=== PATIENT | female | born 1935 | race Caucasian/White ===

== ENCOUNTER 2016-07-17 12:18 | Inpatient (IN) | payer OTHER ==
[~2016-07-17] VITALS: Ht 157.5 cm; Wt 69.8 kg
--- NOTE | ~2016-07-17 | HC ---
[facility] [place] [address] CONSULTATION Name: RAKAN PRAKASH Room #: 403-P ADM IN M.R.#: [id number] Admission: 07/17/16 Attend Phys: Lyndsey Cesar Discharge: Date of : 35 Report #: [id number] THIS REPORT FOR: //name// CC: Valentín Hernandez INFECTIOUS DISEASES CONSULTATION REASON FOR CONSULTATION: I was asked to evaluate concerning left foot diabetic infection. HISTORY OF PRESENT ILLNESS: The patient was an 80-year-old who I had seen in May of this year with similar issue. Cultures at that time had grown pseudomonas and MRSA. Treated with IV antibiotic therapy. Ultimately was discharged. She was seen by Dr. Steven as an outpatient. Returns now with increased pain, swelling involving the left foot. Moderate amount of drainage from the plantar aspect of her foot with a wound has been present. No recent antibiotic usage. ALLERGIES: OXYCODONE. MEDICATIONS: As noted on the MAR, now on vancomycin and cefepime. PAST MEDICAL HISTORY: Unchanged from her previous consultation. FAMILY HISTORY: Unchanged from her previous consultation. SOCIAL HISTORY: Unchanged from her previous consultation. REVIEW OF SYSTEMS: No cough, sputum, nausea, vomiting or diarrhea. PHYSICAL EXAMINATION: VITAL SIGNS: Afebrile and hemodynamically stable. GENERAL: She was alert and cooperative. In no acute distress. Eating her dinner. She was hard of hearing, as before. HEENT: Unremarkable. LUNGS: Clear. HEART: Regular, without appreciable murmur. ABDOMEN: Soft and nontender. EXTREMITIES: Left foot had 2+ swelling. There was a wound to the plantar aspect of her mid foot. This had serous drainage. There was erythema involving the mid foot plantar aspect and dorsum. Erythema extended to the toes, most predominant over the fifth digit. She had a moderate amount of ecchymosis over the dorsum of the foot. There was significant edema and fluctuance. LABORATORY STUDIES: Sodium 136, potassium 3.2, bicarbonate 24 and creatinine 1. Bilirubin 1.2, alk phosphatase 177 and ALT 11. Hemoglobin 10.5, white count 14.4 and platelet count 323,000. Urinalysis 2+ protein. Wound so far showing [facility] [address] [place] [address] CONSULTATION Name: RAKAN PRAKASH Room #: 403- ADM IN [facility].#: [id number] Admission: 07/17/16 Attend Phys: Lyndsey Cesar Discharge: Date of : 35 Report #: [id number] Staph aureus. Blood cultures 1 of 2 showing gram-positive cocci. IMPRESSION AND PLAN: An 80-year-old with diabetic foot infection on the left with concern for underlying osteomyelitis given the duration of her wound and the amount of swelling that we were dealing with now. Indeterminate whether we are dealing with a contaminant from her blood culture or actually has Staph aureus associated with the foot infection. She has completed MRI scan and I am awaiting results. I agree with orthopedic surgery evaluation. Will continue with broad antibiotic coverage, including vancomycin and Zosyn and will likely need surgical intervention. <ELECTRONICALLY SIGNED> By: Alex Hernandez MD 07/19/16 1210 1812 0147 Alex Hernandez MD /nt
--- NOTE | ~2016-07-17 | HC ---
[facility] [place] [address] CONSULTATION Name: RAKAN PRAKASH Room #: 429-P ADM IN M.R.#: [id number] Admission: 07/17/16 Attend Phys: Lyndsey Cesar Discharge: Date of : 35 Report #: [id number] THIS REPORT FOR: //name// CC: Valentín Hernandez DATE OF SERVICE: 07/21/2016 HISTORY OF PRESENT ILLNESS: The patient is an 80-year-old white female originally admitted through the emergency department with pain in her left foot. She has been following with outpatient wound care for a foot wound. She was diagnosed with an infected left diabetic foot wound with abscess formation and osteomyelitis. She ended up undergoing a left below knee amputation on 07/20/2016. We are seeing her in rehabilitation medicine consultation. 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 PAST SURGICAL HISTORY: Includes old right total shoulder arthroplasty. She has had left knee arthroscopy and a cholecystectomy. MEDICATIONS: Please see the full medication listing. FAMILY HISTORY: Noncontributory. SOCIAL HISTORY: Lives in a condominium with a ramp, stays upstairs with a ramp to enter. She has a friend from tenri[place] that stays with her, which she calls her [employer] daughter as well as son-in-law and some grand kids. She premorbidly used a walker at times. REVIEW OF SYSTEMS: Did not offer any current complaints of chest pain, shortness of breath or abdominal discomfort. PHYSICAL EXAMINATION: GENERAL: The patient is an 80-year-old white female in no obvious distress. The patient is alert, pleasant, oriented. VITAL SIGNS: Last recorded temperature is 98.6, pulse 113, respirations 18, blood pressure 141/70. HEENT: Appeared to be benign. NEUROLOGIC: Cranial nerves are grossly intact. Facies are symmetric. She has functional range of motion of both upper extremities with strength of grade 4-/5. DTRs are trace to 1. In her lower extremities, she has functional range of motion with good strength of that right lower extremity at a grade 4-. Her left below knee amputation site is dressed with the drain in place. She has some discomfort moving the left lower extremity. Therapies are to assess. She is very motivated as far as improving her function. [address] [address] CONSULTATION Name: RAKAN PRAKASH Room #: [address] [place] [address] IN M.R.#: [id number] Admission: 07/17/16 Attend Phys: Lyndsey Cesar Discharge: Date of : 35 Report #: [id number] ASSESSMENT: An 80-year-old white female with the following problem list: 1. Left wound with osteomyelitis status post below-knee amputation 07/20/2016. 2. Diabetes mellitus type 2. 3. Hypertension. 4. Renal insufficiency. 5. Hypertension. 6. Prior right acoustic nerve tumor treated in 2002. PLAN: Therapy evaluations are underway. She is very motivated and appears younger than her 80 years and is wanting to return back to the home setting. We will assess how she does with therapies. I am anticipating that she should have the tolerance for an acute in-hospital inpatient rehabilitation stay. Note that infectious disease is planning on vancomycin 2 weeks postoperative. Insurance will need to be checked regarding an acute in-hospital inpatient rehabilitation stay. <ELECTRONICALLY SIGNED> By: Vinh Nick MD 07/24/16 1054 1102 1222 Vinh Nick MD /nt
--- NOTE | ~2016-07-17 | S ---
[facility] [place] [address] SURGICAL PATH RPT PROCEDURE Name: RAKAN ALBRIGHT Room #: 429-P ADM IN M.R.#: [id number] Admission: 07/17/16 Date of : 35 Discharge: Report #: [id number] Path Case #: [id number] PATHOLOGY REPORT COLLECTION DATE: 07/20/2016 RECEIVED DATE: 07/20/2016 SUBMITTING PHYS: Dr. Joseph Monique OTHER PHYS: Dr. Valentín Hernandez SPECIMEN(S) RECEIVED: A.Left leg * * * * * * * * * * * * FINAL DIAGNOSIS: Portion of leg, "left leg," amputation: - Deep penetrating acute ulceration with necrotic acute inflammatory exudate forming an abscess. - The inflammation extends deeply into the underlying bone with acute osteomyelitis with areas of necrosis and acute inflammation. - The anterior and posterior tibial vasculature reveals calcified atherosclerotic narrowing of vessels. - The skin section margin appears viable. (SHA:; d/t: 07/24/16) PATHOLOGIST: Mert Bray M.D. REPORT ELECTRONICALLY SIGNED BY: Mert Bray M.D. DATE/TIME: 07/24/2016 14:12 * * * * * * * * * * * * GROSS PATHOLOGY: The specimen is received fresh in a red biohazard bag and labeled "Rakan Albright and left leg." Received is a left lower extremity specimen amputated through the tibia and fibula with a smooth resection margin. The specimen measures 22.5 cm from heel to toe, 13.0 cm from heel to soft tissue resection margin, 21.5 cm from heel to tibial bone resection margin, and 28.5 cm from heel to fibular bone resection margin. The skin, soft tissue, and bone resection margins are grossly viable and unremarkable. The skin is pink-buckner and wrinkled. There is a 2.0 x 2.0 cm bright red, poorly circumscribed, and partially crusted ulcer located on the medial/plantar aspect of the foot. The ulcer grossly extends to and involves the underlying bone. The great toe, third, fourth, and fifth digits with thickened, dark yellow nails are present. The second digit is absent. Sectioning of the anterior and posterior tibial vasculature reveals patent and slightly calcified lumens. [employer] Development Rep sections are submitted as follows: [address] [address] SURGICAL PATH RPT PROCEDURE Name: RAKAN ALBRIGHT CARYN Room #: [address] [place] [address] IN .R.#: [id number] Admission: 07/17/16 Date of : 35 Discharge: Report #: [id number] Path Case #: [id number] longitudinal section of skin and soft tissue margin (inked) A2 ulcer A3 bone underlying ulcer, following decalcification A4 anterior tibial vasculature, following decalcification A5 posterior tibial vasculature, following decalcification (TTL; 07/21/2016) CLINICAL HISTORY: Cellulitis left foot INITIAL CPT CODE(S): A; 67243, 20102 Professional services performed by [facility] at [place] [address] [address], [place] [address] Technical services performed by [facility] at [address] [place] [address], [address], [place] [address]. [facility] [address] [place] [address] PHONE: [phone] DIRECTOR: Brett Reynolds M.D. * * * END OF REPORT * * *
--- NOTE | ~2016-07-17 | D ---
[facility] [place] [address] DISCHARGE SUMMARY Name: RAKAN PRAKASH Room #: 429-P ADM IN M.R.#: [id number] Admission: 07/17/16 Attend Phys: Lyndsey Cesar Discharge: Date of : 35 Report #: [id number] THIS REPORT FOR: //name// CC: Valentín Hernandez FINAL DIAGNOSES: 1. Osteomyelitis of the left foot. 2. Left todne-uno-ehdu amputation. 3. Diabetes type 2. 4. Hypertension. HOSPITAL COURSE: The patient was admitted with cellulitis, pain, swelling and infection of a wound on the left foot. Ultimately, she is diagnosed with osteomyelitis and after consultation with orthopedics and infectious disease, the plan was for amputation. She underwent a left xqraq-lue-xdbz amputation by Dr. Monique. Please see his separately dictated operative note. Postoperatively, she had no complications. She continued Lovenox for DVT prophylaxis and her usual medications. Dr. Alex Hernandez felt 2 weeks' postop IV vancomycin was in order and this was continued. She had no other interval complications. Ultimately, plans were made for her to transfer to a skilled facility for ongoing care and therapy. PHYSICAL EXAMINATION: GENERAL: On the day of discharge, she was awake and alert, resting in bed, in no distress. VITAL SIGNS: Stable. LUNGS: Clear. HEART: Regular. ABDOMEN: Soft. EXTREMITIES: Showed no edema. DISPOSITION: She will be discharged to [facility] under the care of in-house physician. Diabetic diet and activity as tolerated. PT, OT. Follow up with Dr. Monique in 3-[address] Hernandez in 3-6 weeks. She will continue vancomycin IV daily for 2 more weeks, Lovenox for 5 more days and her other home medications. <ELECTRONICALLY SIGNED> By: Vinh Johnson MD 07/25/16 1411 0906 1114 Vinh Johnson MD /nt
--- NOTE | ~2016-07-17 | HC ---
[facility] [place] [address] CONSULTATION Name: RAKAN PRAKASH Room #: 429-P [facility] IN M.R.#: [id number] Admission: 07/17/16 Attend Phys: Lyndsey Cesar Discharge: 07/25/16 Date of : 35 Report #: [id number] THIS REPORT FOR: //name// CC: Valentín Hernandez REASON FOR CONSULTATION: Left foot wound, possible osteomyelitis. HISTORY OF PRESENT ILLNESS: The patient is an 80-year-old female who presented to the Emergency Department with left foot pain. She reports an ongoing wound to the left foot on the plantar surface that she has been treated by Dr. Steven. She reports having surgery by Dr. Joseph Monique in the past and this is confirmed from the medical record on 03/13/2016 she had a irrigation and debridement of her left foot wound by Dr. Joseph Monique. She reports approximately 10 days ago having increased pain and swelling in the foot. 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 She also noticed increased drainage. REVIEW OF SYSTEMS: INTEGUMENTARY: Denies any other wounds. NEUROVASCULAR: Denies any changes in numbness or tingling. PAST MEDICAL HISTORY: Reviewed from the patient's medical record including diabetes, hypertension, left foot diabetic wound and dyslipidemia. PAST SURGICAL HISTORY: Cholecystectomy, appendectomy, post left foot wound debridement in 02/2016. SOCIAL HISTORY: She lives at home with people from her latter day. She lost one of her daughters about a year ago and her other daughter, she does not have significant contact with. She denies alcohol or smoking. She reports being in a wheelchair secondary to her wound, but has used a cane or walker in the past. ALLERGIES: OXYCODONE. MEDICATIONS: The patient's MAR was reviewed, which shows glimepiride, bisoprolol, gabapentin, enoxaparin, amlodipine, vancomycin, potassium chloride, acetaminophen, hydrocodone, fentanyl, cefepime and ondansetron. LABORATORY DATA: Laboratory studies done on 07/18/2016 show a white blood cell count of 14.4, hemoglobin 10.5, hematocrit 32.1, platelet count 323. Chemistry on 07/19/2015 shows glucose at 139. Sodium is 136, potassium is low at 3.2 and albumin is low at 1.6. PHYSICAL EXAMINATION: GENERAL: She is alert, she is oriented x 3. She is a well-developed, well-nourished female in no acute distress. She does have some hearing loss, which makes the exam somewhat more difficult. EXTREMITIES: Examination of her left lower extremity; she has no palpable [address] [address] CONSULTATION Name: RAKAN PRAKASH Room #: 429-P [facility] IN M.R.#: [id number] Admission: 07/17/16 Attend Phys: Lyndsey Cesar Discharge: 07/25/16 Date of : 35 Report #: [id number] posterior tibialis pulse. There is a 1+ dorsalis pedis pulse. She has a deformed foot with medial plantar wound measuring approximately 1 cm with mild erythema, I am not able to express any fluid and there is diffuse dorsal foot erythema. She wiggles her toes very minimally and has tenderness diffusely. RADIOGRAPHS: Three views; AP, lateral and oblique of the left foot from 10/11/2014 shows some degenerative changes at the tarsometatarsal joint. Radiographs; 3 views of the left foot done on 07/17/2016 show significant osteolysis at the metatarsophalangeal joints diffusely. Dorsal subcutaneous gas is noted. IMPRESSION AND PLAN: Left chronic plantar foot wound with dorsal subcutaneous gas. The patient will undergo an MRI later to evaluate for osteomyelitis. I will discuss with my partner, Dr. Joseph Monique as he knows this patient and hopefully we will continue with care. Questions were encouraged and answered to the best of my ability. <ELECTRONICALLY SIGNED> By: Kiara Pena MD 07/26/16 0759 1533 0020 Kiara Pena MD /nt
--- NOTE | ~2016-07-17 | O ---
[facility] [place] [address] OPERATIVE REPORT Name: RAKAN PRAKASH Room #: 403-P ADM IN M.R.#: [id number] Admission: 07/17/16 Attend Phys: Lyndsey Cesar Discharge: Date of : 35 Report #: [id number] THIS REPORT FOR: //name// CC: Valentín Hernandez DATE OF SERVICE: 07/20/2016 PREOPERATIVE DIAGNOSIS: Left foot osteomyelitis. POSTOPERATIVE DIAGNOSIS: Left foot osteomyelitis. PROCEDURE: Left below the knee amputation. SURGEON: Joseph Monique M.D. MOLDER FITTING: MELVA Castro (critical for positioning and safe performance of the procedure). ANESTHESIA: General. ESTIMATED BLOOD LOSS: Minimal. DRAINS: None. TOURNIQUET TIME: 40 minutes. DESCRIPTION OF PROCEDURE: The patient brought to the operating room where she was placed under general anesthesia. Once under adequate general anesthesia, her left lower extremity was prepped and draped in sterile manner. Left lower extremity was elevated and tourniquet placed to 300 mmHg. A fishmouth type incision was then made about the mid to distal tibial shaft. This was dissected directly down to the bone anteriorly and to the fibula laterally. The Bovie cautery was utilized to incise the remainder of the muscular tissue. Any vessels were tagged for later ligation. The peroneals and the posterior tibial vessels were identified and tagged for later ligation. The periosteum of the tibia was elevated and an oscillating saw was utilized to transect the tibia. This was then beveled anteriorly with the oscillating saw. A few centimeters proximal to this, the fibula was transected as well. The distal extremity was then able to be removed. The posterior tibial and peroneal vessels were then suture ligated with 0 silk suture. The posterior tibial nerve was incised sharply up in the muscular tissue away from the amputation site. The wound was then irrigated copiously and closed with #1 Vicryl into the deep fascia over a Hemovac drain, 2-0 Vicryl for subcutaneous tissues and connie were used for the skin. The wounds were dressed with Xeroform, 4 x 4s, and a sterile soft compressive dressing was placed. Tourniquet was let down at 30 minutes. Tourniquet was let down at approximately 35 minutes. There were no [facility] [address] [place] [address] OPERATIVE REPORT Name: PRAKASHRAKAN Room #: 403-P [facility] IN ..#: [id number] Admission: 07/17/16 Attend Phys: Lyndsey Cesar Discharge: Date of : 35 Report #: [id number] complications from the procedure. The patient tolerated the procedure well and went to the recovery room without incident. <ELECTRONICALLY SIGNED> By: Joseph Monique MD 07/21/16 1344 0841 1102 Joseph Monique MD /sherin
--- NOTE | ~2016-07-17 | H ---
[facility] [place] [address] HISTORY AND PHYSICAL Name: RAKNA PRAKASH Room #: 403-P ADM IN M.R.#: [id number] Admission: 07/17/16 Attend Phys: Lyndsey Cesar Discharge: Date of : 35 Report #: [id number] THIS REPORT FOR: //name// CC: Valentín Hernandez DATE OF SERVICE: 07/17/2016 CHIEF COMPLAINT: Fever, chills and foot pain. HISTORY OF PRESENT ILLNESS: The patient is an 80-year-old female who was admitted to the emergency room with pain of the left foot. She has an ongoing wound on the dorsum of the foot, around the plantar surface of the foot for quite some months. She has been treated as an outpatient. She also has a foot deformity as a result. However, in recent days, she has noted increased swelling, pain, redness and drainage from the left foot wound. PAST MEDICAL HISTORY: Diabetes type 2, hypertension. 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 PAST SURGICAL HISTORY: She has had a cholecystectomy, appendectomy and orthopedic knee surgeries. FAMILY HISTORY: Noncontributory. SOCIAL HISTORY: She lives at home with family. No chronic alcohol or tobacco use. ALLERGIES: OXYCODONE. MEDICATIONS: Hydrocodone 7.5, Norvasc 5 mg, bisoprolol 5 mg, Amaryl 2 mg, clonidine 0.1 mg b.i.d., Neurontin 300 mg t.i.d. and 600 mg at bedtime and vitamin B12. REVIEW OF SYSTEMS: She denies headache, chest pain, shortness of breath, abdominal pain, nausea, vomiting, diarrhea, constipation, dysuria or syncope. PHYSICAL EXAMINATION: VITAL SIGNS: Temperature 36.9, pulse 90, respirations 18, blood pressure 144/76 and O2 sat 96% on room air. GENERAL: She is awake and alert, in no distress. HEAD AND NECK: She is very hard of hearing. LUNGS: Clear with no wheezing. HEART: Regular, with no murmur. ABDOMEN: Soft. Normoactive bowel sounds. EXTREMITIES: No cyanosis or clubbing. The left foot has 1+ edema with erythema [address] [address] HISTORY AND PHYSICAL Name: RAKAN PRAKASH Room #: [facility] IN [facility].#: [id number] Admission: 07/17/16 Attend Phys: Lyndsey Cesar Discharge: Date of : 35 Report #: [id number] and warmth. On the plantar surface, there is a nickel sized opening, oozing some serous yellow drainage. There is a lot palpable tenderness. There is a mid foot deformity. NEUROLOGIC: Global strength 3/5 throughout. LABORATORY DATA: X-ray revealed signs of cellulitis and perhaps subcutaneous abscess. Blood culture has gram-positive cocci. ASSESSMENT: 1. Infected left diabetic foot wound. 2. Diabetes type 2. 3. Hypertension. PLAN: I will ask Dr. Alex Hernandez to see her in consultation and Dr. Monique. An MRI is ordered. Now continue IV antibiotics. She may need long-term antibiotic treatment and wound care pending the results of MRI. Lovenox for DVT prophylaxis. <ELECTRONICALLY SIGNED> By: Vinh Johnson MD 07/19/16 1015 0929 1007 Vinh Johnson MD /nt
[~2016-07-17 12:18] MED LIST: ADULT LOW DOSE81 MG PO; AMARYL2 MG PO; AUGMENTIN 875875 MG PO; B12INJ IM; BACTRIM DS TAB1 EACH PO; BISOPROLOL FUMAR5 MG PO; BUSPAR; CEPHALEXIN 500500 M1 PO; CIPRO500 MG PO; CLONIDINE PO; CLONIDINE0.1 PO; DIOVAN HCT 80-1 EACH PO; ETODOLAC 400 M400 M1 PO; ETODOLAC 400 M400 MG PO; FLONASE 0.05%50 MCG NASAL; GABAPENTIN300 MG PO; GLUCOPHAGE XR500 MG; GLUCOPHAGE500 MG PO; HYDROCHLOROTH12.5 MG PO; HYDROCODONE-APA1 TA1 PO; KEFLEX500 MG PO; LIPITOR10 MG PO; METFORMIN 500500 MG PO; METOPROLOL 100100 MG PO; NEURONTIN 300300 M1 PO; NEURONTIN600 MG PO; NORCO 5-325 TA1 EACH PO; NORVASC 5 MG TAB5 MG PO; NORVASC10 MG PO; NOVOLIN N100 UNIT/1 SQ; NOVOLOG100 UNIT/1 SQ; PEPCID20 MG PO; PLAVIX 75 MG TA75 MG PO; PRILOSEC 20 MG20 MG PO; ULTRAM 50MG TAB50 MG PO; VALIUM2 MG PO; VITAMIN B-12500 MCG PO; VITAMINC500 PO; ZIAC 5-6.25 MG1 EACH PO; ZINC50 M2 PO; ZOFRAN ODT4 MG PO
[2016-07-17 12:19] VITALS: BP 123/67
[2016-07-17 13:21] LABS: HEMATOCRIT 31.3 % (37.0-47.0); HEMOGLOBIN 10.5 gm/dL (12.0-15.0); MANUAL DIFF YES; MCH 26.7 pg (26.0-34.0); MCHC 33.4 g/dL (28.0-37.0); PLATELET COUNT 299 thou/uL (150-400); RBC 3.92 mil/uL (4.20-5.00); WBC 14.3 thou/uL (4.0-11.0)
[2016-07-17 13:28] LABS: CALCIUM 9.2 mg/dL (8.5-10.1); CREATININE 1.3 mg/dL (0.6-1.0); POTASSIUM 3.8 mmol/L (3.5-5.1)
[2016-07-17 13:33] LABS: ALBUMIN 1.8 g/dL (3.4-5.0); DIRECT BILIRUBIN 1.2 mg/dL (<0.1-0.3); TOTAL BILIRUBIN 1.9 mg/dL (<0.1-1.0); TOTAL PROTEIN 6.6 g/dL (6.4-8.2)
[2016-07-17 13:55] LABS: ABSOLUTE NEUTROPHILS 13.3 thou/uL (1.4-8.2); PLATELET ESTIMATE NORMAL; TOTAL CELL COUNT 100
[2016-07-17 16:12] VITALS: BP 132/47
[2016-07-17 16:29] LABS: URINE BLOOD 2+ (Negative); URINE COLOR YELLOW; URINE GLUCOSE-RANDOM* NEGATIVE (Negative); URINE KETONES 1+ (Negative); URINE NITRITE NEGATIVE (Negative); URINE PROTEIN (DIPSTICK) 2+ (Negative); URINE UROBILINOGEN >= 8.0 E.U./dl (0.2-1.0)
[2016-07-17 16:33] LABS: URINE BILIRUBIN NEGATIVE (Negative)
[2016-07-17 16:34] LABS: SQUAMOUS 0-3 Few /LPF (0-3); URINE RBC 0-2 Rare /HPF (0-2); URINE WBC 0-5 Rare /HPF (0-5)
[2016-07-17 16:35] LABS: CASTS None Seen /LPF (None Seen); CRYSTALS None Seen /LPF (None Seen)
[2016-07-17 18:45] VITALS: BP 123/62
[2016-07-18 00:54] VITALS: BP 134/75
[2016-07-18 03:45] VITALS: BP 144/76
[2016-07-18 06:28] LABS: ALBUMIN 1.6 g/dL (3.4-5.0); CALCIUM 8.8 mg/dL (8.5-10.1); POTASSIUM 3.2 mmol/L (3.5-5.1); TOTAL BILIRUBIN 1.2 mg/dL (<0.1-1.0); TOTAL PROTEIN 6.5 g/dL (6.4-8.2)
[2016-07-18 06:46] LABS: HEMATOCRIT 32.1 % (37.0-47.0); HEMOGLOBIN 10.5 gm/dL (12.0-15.0); MCH 26.3 pg (26.0-34.0); MCHC 32.7 g/dL (28.0-37.0); MCV 80.4 fL (80.0-100.0); RDW 15.1 % (10.5-14.5); WBC 14.4 thou/uL (4.0-11.0)
[2016-07-18 08:00] VITALS: BP 147/71
[2016-07-18 16:00] VITALS: BP 112/79
[2016-07-18 21:10] VITALS: BP 146/78
[2016-07-18 23:10] VITALS: BP 137/60
[2016-07-19 03:43] VITALS: BP 138/64
[2016-07-19 08:06] VITALS: BP 147/74
[2016-07-19 09:01] LABS: ABSOLUTE NEUTROPHILS 10.3 thou/uL (1.4-8.2); BASOPHILS 0.5 % (0.0-2.0); EOSINOPHILS 1.5 % (0.0-3.0); HEMOGLOBIN 11.2 gm/dL (12.0-15.0); LYMPHOCYTES 10.3 % (24.0-44.0); MCH 26.8 pg (26.0-34.0); MCV 81.3 fL (80.0-100.0); MONOCYTES 6.9 % (1.0-8.0); PLATELET COUNT 370 thou/uL (150-400); POLYS 80.8 % (36.0-66.0); RBC 4.19 mil/uL (4.20-5.00); RDW 15.1 % (10.5-14.5); WBC 12.7 thou/uL (4.0-11.0)
[2016-07-19 09:02] LABS: MANUAL DIFF NO
[2016-07-19 10:45] LABS: CALCIUM 8.8 mg/dL (8.5-10.1); POTASSIUM 3.6 mmol/L (3.5-5.1)
[2016-07-19 16:04] VITALS: BP 130/67
[2016-07-19 19:40] VITALS: BP 122/59
[2016-07-20] VITALS (9 sets, daily range): BP systolic 104–148; BP diastolic 50–81
[2016-07-20 06:37] LABS: HEMATOCRIT 33.4 % (37.0-47.0); MCH 26.6 pg (26.0-34.0); MCHC 32.8 g/dL (28.0-37.0); MCV 80.9 fL (80.0-100.0); PLATELET COUNT 354 thou/uL (150-400); RBC 4.13 mil/uL (4.20-5.00); RDW 15.3 % (10.5-14.5); WBC 13.3 thou/uL (4.0-11.0)
[2016-07-20 06:42] LABS: MANUAL DIFF YES
[2016-07-20 07:04] LABS: CALCIUM 9.4 mg/dL (8.5-10.1); CREATININE 1.2 mg/dL (0.6-1.0); POTASSIUM 3.5 mmol/L (3.5-5.1)
[2016-07-20 07:47] LABS: ABSOLUTE NEUTROPHILS 10.2 thou/uL (1.4-8.2); TOTAL CELL COUNT 100
[2016-07-20 07:48] LABS: ANISOCYTOSIS 1+
[2016-07-21 04:00] VITALS: BP 138/68
[2016-07-21 05:06] LABS: CALCIUM 8.2 mg/dL (8.5-10.1); CREATININE 1.1 mg/dL (0.6-1.0); POTASSIUM 3.8 mmol/L (3.5-5.1)
[2016-07-21 05:27] LABS: HEMATOCRIT 30.4 % (37.0-47.0); HEMOGLOBIN 9.9 gm/dL (12.0-15.0); MCH 26.3 pg (26.0-34.0); MCHC 32.5 g/dL (28.0-37.0); RBC 3.76 mil/uL (4.20-5.00); RDW 15.2 % (10.5-14.5)
[2016-07-21 08:42] VITALS: BP 141/70
[2016-07-21] MEDS ORDERED: ENOXAPARIN40 MG/0.1 SUBQ (08:54)
[2016-07-21 21:01] VITALS: BP 137/72
[2016-07-22 05:16] VITALS: BP 145/78
[2016-07-22 08:01] VITALS: BP 140/74
[2016-07-22 16:21] VITALS: BP 148/72
[2016-07-22 18:30] VITALS: BP 133/64
[2016-07-22 20:30] VITALS: BP 120/69
[2016-07-23 04:30] VITALS: BP 136/74
[2016-07-23 07:51] VITALS: BP 160/96
[2016-07-23 16:32] VITALS: BP 140/88
[2016-07-23 21:28] VITALS: BP 118/64
[2016-07-24 04:51] VITALS: BP 143/68
[2016-07-24] MEDS ORDERED: VANCO 1.251.25 GM/25 IVPB (08:27)
[2016-07-24 08:30] VITALS: BP 142/66
[2016-07-24 12:47] LABS: CALCIUM 8.4 mg/dL (8.5-10.1); POTASSIUM 4.2 mmol/L (3.5-5.1)
[2016-07-24 13:26] VITALS: BP 122/56
[2016-07-24 20:00] VITALS: BP 130/70
[2016-07-25 04:18] VITALS: BP 136/64
[2016-07-25 08:03] VITALS: BP 143/72
== END 2016-07-25 17:05 | DRG 853 ==
LOC: ER 12:18 → 4N 15:27 → EROBS 15:27 → 4N 16:57 → 4E 07-22 18:24
PROVIDERS: Internal Medicine Geriatric Medicine; Nurse Practitioner; Orthopaedic Surgery Foot and Ankle Surgery
PROC: 0Y6J0Z2 Detachment at Left Lower Leg, Mid, Open Approach (ICD-10-PCS; principal; 2016-07-20)
PROC: 02HV33Z Insertion of Infusion Device into Superior Vena Cava, Percutaneous Approach (ICD-10-PCS; 2016-07-25)
DX: A41.9 Sepsis, unspecified organism (principal); E43 Unspecified severe protein-calorie malnutrition; M86.9 Osteomyelitis, unspecified; L03.116 Cellulitis of left lower limb; L02.612 Cutaneous abscess of left foot; E11.69 Type 2 diabetes mellitus with other specified complication; E11.42 Type 2 diabetes mellitus with diabetic polyneuropathy; I10 Essential (primary) hypertension; E78.00 Pure hypercholesterolemia, unspecified; Z96.611 Presence of right artificial shoulder joint; S91.302A Unspecified open wound, left foot, initial encounter; X58.XXXA Exposure to other specified factors, initial encounter; N28.9 Disorder of kidney and ureter, unspecified; E78.5 Hyperlipidemia, unspecified; B95.62 Methicillin resistant Staphylococcus aureus infection as the cause of diseases classified elsewhere; Z98.42 Cataract extraction status, left eye; Z98.41 Cataract extraction status, right eye; Z88.6 Allergy status to analgesic agent; Y93.89 Activity, other specified; Y92.89 Other specified places as the place of occurrence of the external cause; Z86.73 Personal history of transient ischemic attack (TIA), and cerebral infarction without residual deficits; Y99.8 Other external cause status; Z90.49 Acquired absence of other specified parts of digestive tract
CPT/HCPCS: 10783; 10790; 27000; 50010; 50101; 50386; 51412; 53000; 56524; 56525; 57091; 62110; 62900; 70005

== ENCOUNTER → 2017-04-17 | Outpatient (CLI) | payer OTHER, SELFPAY ==
[~2017-04-17] MED LIST changes: +COLACE 100 MG100 MG PO; +ENOXAPARIN30 MG/0.1 SUBQ; +ENOXAPARIN40 MG/0.1 SUBQ; +NORCO 7.5-3251 EACH PO; +SENNA8.6 MG PO; +VANCO 1.251.25 GM/25 IVPB
[2017-04-17 12:42] LABS: CREATININE 1.2 mg/dL (0.6-1.0)
== END ==
LOC: MRI 10:38
PROVIDERS: Otolaryngology Plastic Surgery within the Head & Neck
DX: H90.41 Sensorineural hearing loss, unilateral, right ear, with unrestricted hearing on the contralateral side (principal); H93.8X1 Other specified disorders of right ear; D36.10 Benign neoplasm of peripheral nerves and autonomic nervous system, unspecified; E11.9 Type 2 diabetes mellitus without complications; E78.00 Pure hypercholesterolemia, unspecified; I51.89 Other ill-defined heart diseases; Z98.890 Other specified postprocedural states

== ENCOUNTER 2017-06-17 12:58 | Inpatient (IN) | payer OTHER, SELFPAY ==
[~2017-06-17] VITALS: Ht 157.5 cm; Wt 76.7 kg
--- NOTE | ~2017-06-17 | EKG ---
[address] [employer] [place] [address] ELECTROCARDIOGRAM REPORT Name: RAKAN PRAKASH Room #: 407-P ADM IN M.R.#: [id number] Admission: 06/17/17 Attend Phys: Vinh Johnson MD Discharge: Date of : 35 Report #: [id number] THIS REPORT FOR: //name// [facility] ED Test Date: 2017-06-17 Test Time: 15:11:54 Pat Name: RAKAN PRAKASH Department: Room: 407 Gender: F Slasher: Caleb LACY : 1935 Requested By: Maksim Latif Order Number: [id number] MD: Aaron Haley Measurements Intervals Garibaldi Rate: 71 P: 35 MD: 137 QRS: -8 QRSD: 113 T: 43 QT: 424 QTc: 461 Interpretive Statements Sinus rhythm Inferior infarct, old Compared to ECG 07/14/2015 23:10:24 No significant changes Electronically Signed On 06-18-2017 8:40:05 PURCHASING CLERK by Aaron Haley [email or web address] <ELECTRONICALLY SIGNED> By: Aaron Haley MD, [facility] 06/18/17 0840 10 10 Aaron Haley MD, [facility] /EPI
--- NOTE | ~2017-06-17 | O ---
[facility] [place] [address] OPERATIVE REPORT Name: RAKAN PRAKASH Room #: 407-P [facility] IN M.R.#: [id number] Admission: 06/17/17 Attend Phys: Vinh Johnson MD Discharge: Date of : 35 Report #: [id number] THIS REPORT FOR: //name// CC: Valentín Johnson DATE OF SERVICE: 06/18/2017 PREOPERATIVE DIAGNOSIS: Right periprosthetic midshaft humerus fracture. POSTOPERATIVE DIAGNOSIS: Right periprosthetic midshaft humerus fracture. PROCEDURE: ORIF of right periprosthetic midshaft humerus fracture. SURGEON: Raman Sadler MD [facility] LOCATION MANAGER: MELVA Rodriguez INDICATIONS FOR ASSISTANCE: Throughout the case extensive retraction and assistance with reduction was required. This was afforded to me by my shop assistant. ANESTHESIA: General endotracheal. IMPLANTS: Synthes 10-hole 3.5 locking plate with 3 proximal unicortical locking screws and 2 proximal cerclage cables as well as 2 distal locking screws and 1 distal cortical screw. ESTIMATED BLOOD LOSS: 100 mL. COMPLICATIONS: None. SPECIMENS: None. CONDITION UPON LEAVING THE OPERATING ROOM: Stable. INDICATIONS FOR PROCEDURE: The patient is an 81-year-old female who had a right shoulder hemiarthroplasty approximately 8 years or so ago. X-ray as well as CT scan showed her to have a spiral fracture at the level of the tip of the implant. Implant did appear stable and so it was decided to proceed with ORIF of the humerus. DESCRIPTION OF PROCEDURE: Risks, benefits, alternatives, complications were discussed in detail with the patient including but not limited to risk of [facility] [address] [place] [address] OPERATIVE REPORT Name: RAKAN PRAKASH Room #: 407-P ADM IN M.R.#: [id number] Admission: 06/17/17 Attend Phys: Vinh Johnson MD Discharge: Date of : 35 Report #: [id number] anesthesia, risk of damage to nerves, arteries, blood vessels, risk for infection, bleeding, risk for malunion, nonunion, need for reoperation. Informed consent was obtained from the patient. The right shoulder was appropriately marked in the preoperative holding area. IV Ancef was given for preoperative antibiotics. She was brought to the operating room and placed in the supine position on the operating room table. General endotracheal anesthesia was induced without complication. Right upper extremity was prepped and draped in normal sterile fashion. Timeout was performed properly identifying the patient and procedure as well as the instrumentation. All in the operating room were in agreement. Standard anterolateral approach to the midshaft of the humerus was made with a 10 blade through the skin along the lateral border of the biceps muscle. Dissection was taken down to the fascia with Bovie cautery. Fascia was incised longitudinally and the plane between the biceps and the brachialis was developed digitally. The biceps was retracted medially and the brachialis musculature was split in its midline with Bovie cautery and a Robles elevator down to the bone. Fracture site was easily identified and the hematoma was curetted out and irrigated. Fracture was then held reduced with 2 bhajn-nf-vrwcd reduction forceps. A 10-hole 3.5 plate was placed on the anteromedial border of the humerus and fluoroscopic imaging was brought in to verify adequate length of the plate. The 2 most proximal screw holes were used to place 2 unicortical screws; 1 distal screw, bicortical, was placed to bring the plate down to the bone. Two additional distal locking screws were placed. After fluoroscopic imaging, it was decided that there would be room for 2 cerclage cables and additional unicortical screw proximally and these were placed. We used the cable passer and we were careful to stay on bone posteriorly in order to avoid the radial nerve. The cables were tensioned and crimped. After this, final fluoroscopic imaging was brought in to verify adequate fracture reduction and placement of hardware as was the case. Wound was thoroughly irrigated with normal saline. The split in the brachialis was closed loosely with 0 Vicryl suture. Adipose layer was closed with 0 Vicryl. Skin was closed with 2-0 Vicryl and skin connie. Aquacel dressing was applied. The patient tolerated this procedure well, went to the recovery room under the care of Anesthesia postoperatively. <ELECTRONICALLY SIGNED> By: Raman Sadler MD 06/20/17 1448 99 39 Raman Sadler MD /nt
--- NOTE | ~2017-06-17 | HC ---
[facility] [place] [address] CONSULTATION Name: RAKAN PRAKASH Room #: 407-P [facility] IN M.R.#: [id number] Admission: 06/17/17 Attend Phys: Vinh Johnson MD Discharge: 06/25/17 Date of : 35 Report #: [id number] THIS REPORT FOR: //name// CC: Valentín Johnson DATE OF SERVICE: 06/20/2017 HISTORY OF PRESENT ILLNESS: The patient is an 81-year-old white female with a prior right shoulder surgery who fell outside mandaeism and was noted to sustain a displaced periprosthetic right humerus fracture. She was admitted to [facility] and underwent open reduction and internal fixation on 06/18/2017. She has been placed in a sling. We are seeing her in rehabilitation medicine consultation. PAST MEDICAL HISTORY: Includes the prior right total shoulder as noted above. She has a history of diabetes mellitus type 2 and underwent a left below knee amputation in 2017. She does have a prosthesis. History of hypertension and she had a brain tumor with radiation therapy back in 2012. History of peripheral neuropathy. MEDICATIONS: Please see the full medication listing. PAST SURGICAL HISTORY: As noted above. FAMILY HISTORY: Noncontributory. ALLERGIES: OXYCODONE. SOCIAL HISTORY: She lives with her cousin in a condominium, no steps. She has a wheelchair, front-wheeled walker and cane. She did have assistance a couple of times a day helping in the morning and the evening with dressing, showering and IADLs. REVIEW OF SYSTEMS: No current complaints of chest pain, shortness of breath or abdominal discomfort. She has had some problems with her right knee and has been attending outpatient physical therapy prior to this current admission. PHYSICAL EXAMINATION: GENERAL: An 81-year-old white female in no obvious distress. VITAL SIGNS: Last recorded temperature is 98.9, pulse 80, respirations 18, blood pressure 153/72. She is alert, pleasant. HEENT: Appeared to be benign. NEUROLOGIC: Cranial nerves are grossly intact. Facies are symmetric. EXTREMITIES: Functional range of motion of the left upper extremity without obvious focal weakness. Right upper extremity is in a moustapha-sling. [facility] [address] [place] [address] CONSULTATION Name: RAKAN PRAKASH Room #: [facility] IN [facility].#: [id number] Admission: 06/17/17 Attend Phys: Vinh Johnson MD Discharge: 06/25/17 Date of : 35 Report #: [id number] Extremities: She has functional range of motion of the right lower extremity with decreased distal sensation consistent with her peripheral neuropathy. No focal calf swelling. Strength is a grade 4 to 4-/5. Left lower extremity reveals the well-healed below knee amputation. No distal breakdown. Strength is probably a grade 4-/5. Functionally, she is moving with therapies with basic transfers, mod assist. ASSESSMENT: An 81-year-old white female with the following problems: 1. Right humerus fracture, periprosthetic, status post open reduction and internal fixation 06/18/2017. 2. Prior left below knee amputation. 3. Diabetic peripheral neuropathy. 4. History of a brain tumor with radiation in 2012. 5. Hypertension. PLAN: Therapy evaluations are underway. Insurance will need to be checked regarding rehab therapy options. At this point, it would appear skilled level options would be more appropriate for her as she will be significantly compromised with the right upper extremity postoperatively. Case management to further assist in this regard. <ELECTRONICALLY SIGNED> By: Vinh Nick MD 07/10/17 1030 1237 1628 Vinh Nick MD /nt
--- NOTE | ~2017-06-17 | D ---
[facility] [place] [address] DISCHARGE SUMMARY Name: RAKAN PRAKASH Room #: 407-P ADM IN M.R.#: [id number] Admission: 06/17/17 Attend Phys: Vinh Johnson MD Discharge: Date of : 35 Report #: [id number] THIS REPORT FOR: //name// CC: Valentín Johnson DATE OF SERVICE: 06/22/2017 FINAL DIAGNOSES: 1. Periprosthetic right humerus fracture. 2. Hypertension. 3. Diabetes type 2. 4. Left wdopz-twy-wzao amputation. PROCEDURES: Surgical treatment of the right humerus fracture. HOSPITAL COURSE: The patient was admitted through the ER after suffering a fall outside rastafarian fracturing her right humerus around the previous prosthetic joint replacement. Dr. Sadler saw her and stabilized the fracture and ultimately took her to the operating room. Please see his separately dictated report. Otherwise, she remained medically stable during the course of her stay and was treated in the usual fashion with home medications. She will be nonweightbearing on the right arm and is using her prosthetic leg on the left to help with transfers with assistance up to a chair. PHYSICAL EXAMINATION: GENERAL: On the day of discharge, she was awake and alert. VITAL SIGNS: Stable vital signs. Blood sugars are reasonable in the mid 100s. LUNGS: Clear. HEART: Regular. ABDOMEN: Soft, normoactive bowel sounds. EXTREMITIES: No edema on the right. DISPOSITION: She is being transferred to [facility] under the care of the inhouse physician. She has nonweightbearing status in the right arm, has to use her leg to help with transfers from bed to a chair level exercises, can continue to follow up with Dr. Sadler in 2 weeks, Dr. Valadez in 6 weeks. She will have diabetic diet and I signed all her transfer and medication orders. Lovenox for a few more days until she is more active out of bed. <ELECTRONICALLY SIGNED> By: Vinh Johnson MD 06/22/17 1540 1031 1156 Vinh Johnson MD /nt
--- NOTE | ~2017-06-17 | HC ---
[facility] [place] [address] CONSULTATION Name: RAKAN PRAKASH Room #: 407-P ADM IN M.R.#: [id number] Admission: 06/17/17 Attend Phys: Vinh Johnson MD Discharge: Date of : 35 Report #: [id number] THIS REPORT FOR: //name// CC: Valentín Johnson DATE OF SERVICE: 06/17/2017 REASON FOR CONSULTATION: Right humerus fracture. HISTORY OF PRESENT ILLNESS: The patient is an 81-year-old female who fell outside of her jew this morning on her right side. She was having upper arm pain at that time, was brought to the Emergency Room and found to have a periprosthetic right humerus fracture. She has been admitted for definitive treatment. 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 SOCIAL HISTORY: She lives at home with family. Does not smoke or drink. ALLERGIES: OXYCODONE. CURRENT MEDICATIONS: Hydrocodone, Norvasc, bisoprolol, Amaryl and gabapentin. PHYSICAL EXAMINATION: GENERAL: Well-developed, well-nourished female, in no acute distress. She is alert and oriented, pleasant, cooperative with exam. EXTREMITIES: Examination of the right upper extremity shows to have a coaptation splint and sling in place. She does note some numbness in her fingers, but her radial, ulnar and median nerves are intact to motor testing. X-RAY EXAMINATION: AP and lateral of the right humerus shows her to have a cemented right shoulder hemiarthroplasty with oblique periprosthetic fracture at the tip of the stem. The stem itself appears stable. ASSESSMENT: Right humeral periprosthetic midshaft fracture. PLAN: There is significant displacement on her x-ray and I am recommending ORIF. We will plan to do this late tomorrow afternoon. We will allow her to have breakfast in the morning with n.p.o. after that. We did discuss the fact that she need to be nonweightbearing on right upper extremity for 6-12 weeks, pending fracture healing. [address] [address] CONSULTATION Name: RAKAN PRAKASH Room #: 407-P [facility] IN .R.#: [id number] Admission: 06/17/17 Attend Phys: Vinh Johnson MD Discharge: Date of : 35 Report #: [id number] Thank you for allowing us to participate in care of the patient. <ELECTRONICALLY SIGNED> By: Raman Sadler MD 06/20/17 1448 2153 0020 Raman Sadler MD /nt
--- NOTE | ~2017-06-17 | H ---
[facility] [place] [address] HISTORY AND PHYSICAL Name: RAKAN PRAKASH Room #: 407-P ADM IN M.R.#: [id number] Admission: 06/17/17 Attend Phys: Vinh Johnson MD Discharge: Date of : 35 Report #: [id number] THIS REPORT FOR: //name// CC: Valentín Johnson DATE OF SERVICE: 06/17/2017 CHIEF COMPLAINT: Right arm pain. HISTORY OF PRESENT ILLNESS: The patient is an 81-year-old female who came to the Emergency Room today after falling outside buddhist on to her right side. She immediately complained of pain in the right arm and was brought to the ER. X-rays revealed a displaced periprosthetic right humerus fracture. She has a remote history of right shoulder arthroplasty several years ago. PAST MEDICAL HISTORY: She had a diabetic nonhealing foot wound in 2016, ultimately resulting in a left BKA, diabetes type 2 and hypertension. She has had a tumor at the base of the brain on the right with radiation treatment in 2012 and she has had some other surgeries, peripheral neuropathy. PAST SURGICAL HISTORY: As above. FAMILY HISTORY: Noncontributory. SOCIAL HISTORY: She is living with family. No chronic alcohol or tobacco use. ALLERGIES: OXYCODONE. MEDICATIONS: Hydrocodone, Norvasc, bisoprolol, Amaryl and gabapentin. REVIEW OF SYSTEMS: She complains of arm pain, otherwise no headache, chest pain, shortness of breath, abdominal pain, nausea, vomiting, diarrhea, constipation, dysuria, syncope. PHYSICAL EXAMINATION: VITAL SIGNS: Temperature 36.7, pulse 54, respirations 16, blood pressure 142/60. GENERAL: She is awake and alert, in no distress. HEAD AND NECK: Unremarkable. LUNGS: Clear. HEART: Regular. ABDOMEN: Soft, normoactive bowel sounds. EXTREMITIES: Just trace edema on the right. Left BKA. The right arm is angulated, swollen, painful. NEUROLOGIC: She is alert and oriented. [facility] [address] [place] [address] HISTORY AND PHYSICAL Name: RAKAN PRAKASH Room #: [address] [place] [address] [place] ..#: [id number] Admission: 06/17/17 Attend Phys: Vinh Johnson MD Discharge: Date of : 35 Report #: [id number] LABORATORY DATA: I reviewed the x-ray with ER physician. Creatinine is 1.3. ASSESSMENT: 1. Right humerus fracture. 2. Diabetes type 2. 3. Hypertension. PLAN: She will be admitted for orthopedic treatment. I have spoken to the ER physician to stabilize for now and Dr. Sadler has been consulted, usual medications from home and she can proceed to surgery when indicated. <ELECTRONICALLY SIGNED> By: Vinh Johnson MD 06/18/17 1325 1601 1640 Vinh Johnson MD /nt
--- NOTE | ~2017-06-17 | D ---
[facility] [place] [address] DISCHARGE SUMMARY Name: RAKAN PRAKASH Room #: 407-P [facility] IN M.R.#: [id number] Admission: 06/17/17 Attend Phys: Vinh Johnson MD Discharge: 06/25/17 Date of : 35 Report #: [id number] THIS REPORT FOR: //name// CC: Valentín Johnson ADDENDUM Her discharge was held until 06/25/2017. Insurance authorization did not come until that time for penitentiary rehabilitation. She had no medical complications for the additional 2 days of hospitalization. <ELECTRONICALLY SIGNED> By: Vinh Johsnon MD 06/26/17 0932 1257 1305 Vinh Johnson MD /nt
[~2017-06-17 12:58] MED LIST changes: -COLACE 100 MG100 MG PO; -ENOXAPARIN30 MG/0.1 SUBQ; -NORCO 7.5-3251 EACH PO; -SENNA8.6 MG PO
[2017-06-17 13:12] VITALS: BP 142/60
[2017-06-17 15:01] LABS: ABSOLUTE NEUTROPHILS 9.1 thou/uL (1.4-8.2); BASOPHILS 0.7 % (0.0-2.0); EOSINOPHILS 2.6 % (0.0-3.0); HEMOGLOBIN 14.4 gm/dL (12.0-15.0); LYMPHOCYTES 19.5 % (24.0-44.0); MCH 28.2 pg (26.0-34.0); MCHC 33.6 g/dL (28.0-37.0); MCV 84.1 fL (80.0-100.0); MONOCYTES 6.2 % (1.0-8.0); PLATELET COUNT 179 thou/uL (150-400); RBC 5.11 mil/uL (4.20-5.00); RDW 13.6 % (10.5-14.5); WBC 12.9 thou/uL (4.0-11.0)
[2017-06-17 15:07] LABS: CALCIUM 9.3 mg/dL (8.5-10.1); CREATININE 1.3 mg/dL (0.6-1.0); POTASSIUM 4.4 mmol/L (3.5-5.1)
[2017-06-17 17:40] VITALS: BP 139/82
[2017-06-17 20:00] VITALS: BP 138/73
[2017-06-18] VITALS (7 sets, daily range): BP systolic 111–164; BP diastolic 47–74
[2017-06-18 06:34] LABS: HEMOGLOBIN 12.9 gm/dL (12.0-15.0); MCH 28.1 pg (26.0-34.0); MCHC 33.1 g/dL (28.0-37.0); MCV 84.9 fL (80.0-100.0); RBC 4.59 mil/uL (4.20-5.00); RDW 13.4 % (10.5-14.5); WBC 9.3 thou/uL (4.0-11.0)
[2017-06-18 06:49] LABS: CALCIUM 8.5 mg/dL (8.5-10.1); CREATININE 1.2 mg/dL (0.6-1.0); POTASSIUM 4.3 mmol/L (3.5-5.1)
[2017-06-19 00:28] VITALS: BP 165/70
[2017-06-19 04:00] VITALS: BP 165/70
[2017-06-19 06:40] LABS: HEMATOCRIT 38.8 % (37.0-47.0); HEMOGLOBIN 13.1 gm/dL (12.0-15.0); MCH 28.3 pg (26.0-34.0); MCHC 33.7 g/dL (28.0-37.0); RBC 4.62 mil/uL (4.20-5.00); RDW 13.4 % (10.5-14.5); WBC 14.7 thou/uL (4.0-11.0)
[2017-06-19 06:47] LABS: CREATININE 1.2 mg/dL (0.6-1.0); POTASSIUM 4.8 mmol/L (3.5-5.1)
[2017-06-19 08:56] VITALS: BP 167/74
[2017-06-19 17:00] VITALS: BP 175/84
[2017-06-19 20:18] VITALS: BP 168/83
[2017-06-20 05:19] VITALS: BP 153/72
[2017-06-20 07:30] VITALS: BP 153/72
[2017-06-20 12:00] VITALS: BP 133/51
[2017-06-20 14:57] VITALS: BP 135/51
[2017-06-20 20:00] VITALS: BP 143/59
[2017-06-21 04:00] VITALS: BP 130/63
[2017-06-21 05:54] LABS: HEMOGLOBIN 12.8 gm/dL (12.0-15.0); MCH 29.1 pg (26.0-34.0); MCHC 34.5 g/dL (28.0-37.0); MCV 84.3 fL (80.0-100.0); RBC 4.39 mil/uL (4.20-5.00); RDW 13.7 % (10.5-14.5); WBC 10.2 thou/uL (4.0-11.0)
[2017-06-21 06:30] LABS: CREATININE 1.1 mg/dL (0.6-1.0); POTASSIUM 4.1 mmol/L (3.5-5.1)
[2017-06-21 08:49] VITALS: BP 141/71
[2017-06-21 16:59] VITALS: BP 145/67
[2017-06-21 20:00] VITALS: BP 145/65
[2017-06-22 04:00] VITALS: BP 148/70
[2017-06-22] MEDS ORDERED: ENOXAPARIN30 MG/0.1 SUBQ (09:14)
[2017-06-22] MEDS ORDERED: NORCO 7.5-3251 EACH PO (09:15)
[2017-06-22] MEDS ORDERED: COLACE 100 MG100 MG PO (09:16)
[2017-06-22] MEDS ORDERED: SENNA8.6 MG PO (09:16)
[2017-06-22 09:21] VITALS: BP 137/74
[2017-06-22 16:42] VITALS: BP 146/73
[2017-06-22 19:42] VITALS: BP 137/66
[2017-06-23 04:00] VITALS: BP 142/63
[2017-06-23 08:44] VITALS: BP 145/56
[2017-06-23 16:28] VITALS: BP 142/65
[2017-06-23 20:00] VITALS: BP 148/62
[2017-06-24 04:00] VITALS: BP 152/79
[2017-06-24 07:51] VITALS: BP 138/64
[2017-06-24 17:06] VITALS: BP 148/58
[2017-06-24 19:45] VITALS: BP 128/61
[2017-06-25 04:00] VITALS: BP 125/75
[2017-06-25 08:52] VITALS: BP 151/68
== END 2017-06-25 17:05 | DRG 493 ==
LOC: ER 12:58 → 4N 15:38 → EROBS 15:38 → 4N 18:11
PROVIDERS: Emergency Medicine; Internal Medicine Geriatric Medicine
PROC: 2W3AX1Z Immobilization of Right Upper Arm using Splint (ICD-10-PCS; principal; 2017-06-17)
PROC: 0PSF04Z Reposition Right Humeral Shaft with Internal Fixation Device, Open Approach (ICD-10-PCS; 2017-06-18)
DX: M97.31XA Periprosthetic fracture around internal prosthetic right shoulder joint, initial encounter (principal); S42.341A Displaced spiral fracture of shaft of humerus, right arm, initial encounter for closed fracture; I10 Essential (primary) hypertension; E11.42 Type 2 diabetes mellitus with diabetic polyneuropathy; Z96.611 Presence of right artificial shoulder joint; E78.00 Pure hypercholesterolemia, unspecified; H91.90 Unspecified hearing loss, unspecified ear; W01.0XXA Fall on same level from slipping, tripping and stumbling without subsequent striking against object, initial encounter; Y93.89 Activity, other specified; Y92.22 Religious institution as the place of occurrence of the external cause; Y99.8 Other external cause status; Z92.3 Personal history of irradiation; Z98.42 Cataract extraction status, left eye; Z98.41 Cataract extraction status, right eye; Z86.14 Personal history of Methicillin resistant Staphylococcus aureus infection; Z89.512 Acquired absence of left leg below knee; Z90.49 Acquired absence of other specified parts of digestive tract; Z79.899 Other long term (current) drug therapy; Z88.8 Allergy status to other drugs, medicaments and biological substances
CPT/HCPCS: 10091; 50010; 50101; 50341; 50347; 50386; 50417; 51412; 55430; 56528; 56667; 62110; 62900

== ENCOUNTER 2018-05-05 09:23 | Inpatient (IN) | payer OTHER ==
[~2018-05-05] VITALS: Ht 160 cm; Wt 87.1 kg
--- NOTE | ~2018-05-05 | DSS ---
[facility] [place] [address] SHORT STAY SUMMARY Name: RAKAN PRAKASH Room #: 463-P ADM IN M.R.#: [id number] Admission: 05/05/18 Attend Phys: Vinh Johnson MD Discharge: Date of : 35 Report #: [id number] THIS REPORT FOR: //name// CC: Valentín Johnson CHIEF COMPLAINT: Right shoulder pain. HISTORY OF PRESENT ILLNESS: The patient is an 82-year-old female who came to the Emergency Room with intense shoulder pain. She had no new injury, fall or trauma to exacerbate symptoms. She previously had a right shoulder fracture with an arthroplasty in the past. There was some concern of a possible joint infection, and therefore, she was admitted to the hospital. PAST MEDICAL HISTORY: Diabetes type 2, hypertension, peripheral artery disease. She has had a left below the knee amputation due to nonhealing wound. History of renal insufficiency. PAST SURGICAL HISTORY: As above. FAMILY HISTORY: Noncontributory. SOCIAL HISTORY: Lives at home. No chronic alcohol or tobacco use. ALLERGIES: OXYCODONE. MEDICATIONS: Norvasc, bisoprolol, gabapentin, clomipramine. REVIEW OF SYSTEMS: Denies headache, chest pain, shortness of breath, abdominal pain, nausea, vomiting, diarrhea, constipation, dysuria, syncope. She was also complaining of a sore tooth on the right lower jaw. OBJECTIVE: VITAL SIGNS: Pulse ox 95%, blood pressure 142/68, pulse 82, respirations 20, temperature 36.8. LUNGS: Clear. HEART: Regular. ABDOMEN: Soft, normoactive bowel sounds. EXTREMITIES: No edema. There is no palpable tenderness or warmth or redness to the right shoulder. ORAL: She has poor dentition in the right lower jaw. HOSPITAL COURSE: She was seen by Orthopedic Surgery in consultation. She had a CT of the shoulder, this showed no loosening of hardware. There was no sign of fluid accumulation. Her pain resolved overnight with just one dose of hydrocodone. Orthopedic Service felt that she could be evaluated in the office and consider an intra-articular steroid injection. Since there was no fluid [address] [address] SHORT STAY SUMMARY Name: RAKAN PRAKASH Room #: 463-P [facility] IN .R.#: [id number] Admission: 05/05/18 Attend Phys: Vinh Johnson MD Discharge: Date of : 35 Report #: [id number] collection and her pain had resolved, they did not feel IR aspiration was indicated at this point. Blood cultures were pending, but nothing overnight and a chest x-ray was unremarkable. DISPOSITION: She will be discharged to home with diet and activity as tolerated, resume all home medications. She will have a prescription for penicillin for the poor dentition, and she has been instructed to contact her dentist. Follow up with Dr. Hernandez and Dr. Sadler in 2 weeks. By: 1251 1305 Vinh Johnson MD /sherin
[~2018-05-05 09:23] MED LIST changes: +COLACE 100 MG100 MG PO; +ENOXAPARIN30 MG/0.1 SUBQ; +NORCO 7.5-3251 EACH PO; +SENNA8.6 MG PO
[2018-05-05 09:36] VITALS: BP 142/68
[2018-05-05 10:28] LABS: MCH 28.2 pg (26.0-34.0); MCHC 32.7 g/dL (28.0-37.0); MCV 86.2 fL (80.0-100.0); RBC 4.98 mil/uL (4.20-5.00); RDW 13.9 % (10.5-14.5); WBC 12.3 thou/uL (4.0-11.0)
--- NOTE | 2018-05-05 10:35 | NUR ---
ASSUMED PT CARE AT THIS TIME
[2018-05-05 10:37] LABS: ANION GAP 8 mmol/L (7-16); BUN 16 mg/dL (7-18); CALCIUM 8.9 mg/dL (8.5-10.1); CHLORIDE 101 mmol/L (98-107); CO2 27 mmol/L (21-32); CREATININE 1.2 mg/dL (0.6-1.0); GLUCOSE 144 mg/dL (74-106); SODIUM 136 mmol/L (136-145)
[2018-05-05 10:45] LABS: TROPONIN-I <0.06 ng/mL (<0.06)
[2018-05-05 11:54] LABS: ABSOLUTE NEUTROPHILS 10.1 thou/uL (1.4-8.2); BASOPHILS 0.6 % (0.0-2.0); EOSINOPHILS 1.8 % (0.0-3.0); HEMATOCRIT 41.1 % (37.0-47.0); HEMOGLOBIN 13.6 gm/dL (12.0-15.0); LYMPHOCYTES 14.3 % (24.0-44.0); MCH 28.4 pg (26.0-34.0); MCHC 33.1 g/dL (28.0-37.0); MCV 85.9 fL (80.0-100.0); MONOCYTES 5.6 % (1.0-8.0); PLATELET COUNT 170 thou/uL (150-400); POLYS 77.7 % (36.0-66.0); RBC 4.78 mil/uL (4.20-5.00); RDW 13.7 % (10.5-14.5)
--- NOTE | 2018-05-05 12:11 | EKG ---
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: [facility] : 1935 Requested By: Trini Chinchilla Order Number: [id number] MD: Aaron Haley Measurements Intervals [place] Rate: 65 P: 19 OR: 153 QRS: -20 QRSD: 90 T: 27 QT: 419 QTc: 436 Interpretive Statements Sinus rhythm Inferior infarct, old Compared to ECG 06/17/2017 15:11:54 No significant changes Electronically Signed On 05-05-2018 12:10:51 ORDER PROCESSING MANAGER by Aaron Haley [email or web address] <ELECTRONICALLY SIGNED> By: Aaron Haley MD, [facility] 05/05/18 1210 1018 1018 Aaron Haley MD, FACC /EPI
[2018-05-05 12:17] VITALS: BP 141/74
[2018-05-05 13:01] VITALS: BP 134/61
[2018-05-05 13:22] VITALS: BP 146/77
--- NOTE | 2018-05-05 15:54 | NUR ---
ADM PT CAME IN FROM ER. ADM ORDERS CARRIED OUT. PT ORIENTED TO ROOM. WILL CONTINUE TO MONITOR.
[2018-05-05 20:10] VITALS: BP 163/80
[2018-05-06 05:22] VITALS: BP 155/89
--- NOTE | 2018-05-06 07:17 | NUR ---
progress pt admitted with intractable shoulder pain. had a right total shoulder a while ago, had increasing pain x 2 to [address] guided aspiration to r/o infection. has iv inlac infusing ns@80ccs/hr. up with one walker and left leg prosthesis. taking hydrocodone for pain. continue to monitor.
[2018-05-06 08:00] VITALS: BP 157/68
[2018-05-06 11:07] LABS: HEMOGLOBIN 14.5 gm/dL (12.0-15.0); MCHC 33.6 g/dL (28.0-37.0); MCV 86.1 fL (80.0-100.0); RBC 4.99 mil/uL (4.20-5.00); RDW 13.7 % (10.5-14.5); WBC 14.1 thou/uL (4.0-11.0)
[2018-05-06 11:15] LABS: CALCIUM 9.3 mg/dL (8.5-10.1); POTASSIUM 4.1 mmol/L (3.5-5.1)
[2018-05-06] MEDS ORDERED: NORCO 7.5-3251 EACH PO (12:44)
[2018-05-06] MEDS ORDERED: PENICILLIN V P500 MG PO (12:48)
--- NOTE | 2018-05-06 12:49 | NUR ---
PT ADMITTED RELATED TO INTRACTABLE SHOULDER PAIN, CONCERN FOR SEPSISJF, IN. CM REVIEWED CHART AND SPOKE WITH CARE TEAM. CM MET WITH PT AT BEDSIDE THIS DAY. PT IS A&O X4. CM ROLE INTRODUCED. PT INDICATED SHE LIVES IN A CONDO ALONE WITH NO STEPS TO ENTER AND NO STEPS INSIDE. PT INDICATED SHE HAS A RAMP TO ENTER. PT INDICATED SHE HAS ALL NEEDED DME. PT INDICATED SHE HAD BEEN ON SERVICE WITH [facility] AND THAT SHE WOULD LIKE TO RESUME UPON DC. PHYSICIAN INDICATED THAT PT IS MEDICALLY STABLE TO DC HOME THIS DAY.
[2018-05-06 12:54] VITALS: BP 157/68
--- NOTE | 2018-05-06 13:47 | NUR ---
PT STABLE THROUGHOUT SHIFT. PT DISCHARGED HOME WITH HOME HEALTH. PT LEFT UNIT VIA WHEELCHAIR TO PRIVATE VEHICLE.
[2018-05-06 13:57] VITALS: BP 157/68
--- NOTE | 2018-05-06 16:32 | NUR ---
PHYSICAIN INDICATED PT IS MEDICALLY STABLE TO DC HOME THIS DAY. ORDERS WERE RECIEVED FOR PT TO RESUME WITH [facility] PT AND OT. NO OTHER CM INTERVENTION INDICATED AT THIS TIME. CASE CLOSED.
== END 2018-05-06 14:15 | disposition home health service (06) | DRG 556 ==
LOC: ER 09:23 → EROBS 12:09 → 4W 12:09 → ENTRNSPT 05-06 13:47 → EDTRNSPTSTS 05-06 13:50 → 4W 05-06 14:15
PROVIDERS: Physician Assistant; ADMIT Internal Medicine Geriatric Medicine
DX: M25.511 Pain in right shoulder (principal); I10 Essential (primary) hypertension; E78.00 Pure hypercholesterolemia, unspecified; E11.42 Type 2 diabetes mellitus with diabetic polyneuropathy; Z96.611 Presence of right artificial shoulder joint; Z60.2 Problems related to living alone; E11.51 Type 2 diabetes mellitus with diabetic peripheral angiopathy without gangrene; Z89.512 Acquired absence of left leg below knee; Z90.49 Acquired absence of other specified parts of digestive tract; Z98.42 Cataract extraction status, left eye; Z98.41 Cataract extraction status, right eye; Z88.6 Allergy status to analgesic agent; Z79.899 Other long term (current) drug therapy
CPT/HCPCS: 10045

== ENCOUNTER 2019-03-26 14:37 | Emergency (ER) | payer OTHER ==
[~2019-03-26] VITALS: Ht 157.5 cm; Wt 81.7 kg
[~2019-03-26 14:37] MED LIST changes: +PENICILLIN V P500 MG PO
[2019-03-26 15:30] LABS: ABSOLUTE NEUTROPHILS 5.9 thou/uL (1.4-8.2); BASOPHILS 0.3 % (0.0-2.0); EOSINOPHILS 2.8 % (0.0-3.0); HEMATOCRIT 42.2 % (37.0-47.0); HEMOGLOBIN 13.9 gm/dL (12.0-15.0); LYMPHOCYTES 30.5 % (24.0-44.0); MCH 27.9 pg (26.0-34.0); MCHC 32.9 g/dL (28.0-37.0); MCV 84.9 fL (80.0-100.0); MONOCYTES 8.1 % (1.0-8.0); PLATELET COUNT 190 thou/uL (150-400); POLYS 58.3 % (36.0-66.0); RBC 4.97 mil/uL (4.20-5.00); RDW 14.4 % (10.5-14.5); WBC 10.1 thou/uL (4.0-11.0)
[2019-03-26 15:32] LABS: ANION GAP 9 mmol/L (7-16); BUN 22 mg/dL (7-18); CALCIUM 9.2 mg/dL (8.5-10.1); CHLORIDE 104 mmol/L (98-107); CO2 27 mmol/L (21-32); CREATININE 1.3 mg/dL (0.6-1.0); GLUCOSE 134 mg/dL (74-106); POTASSIUM 4.4 mmol/L (3.5-5.1); SODIUM 140 mmol/L (136-145)
[2019-03-26 15:43] LABS: ALBUMIN 3.6 g/dL (3.4-5.0); DIRECT BILIRUBIN < 0.1 mg/dL (<0.1-0.2); MAGNESIUM 1.6 mg/dL (1.8-2.4); SGOT 14 U/L (15-37); SGPT 15 U/L (30-65); TOTAL BILIRUBIN 0.4 mg/dL (<0.1-1.0); TOTAL PROTEIN 7.6 g/dL (6.4-8.2); TROPONIN-I <0.06 ng/mL (<0.06)
[2019-03-26 18:06] VITALS: BP 124/60
--- NOTE | 2019-03-27 08:25 | EKG ---
[address] [address] ELECTROCARDIOGRAM REPORT Name: RAKAN PRAKASH [id number] Admission: 03/26/19 Attend Phys: Discharge: 03/26/19 Date of : 35 Report #: [id number] THIS REPORT FOR: //name// [facility] ED Test Date: 2019-03-26 Test Time: 14:43:35 Pat Name: RAKAN PRAKASH Department: Room: Gender: F Internet Security Specialist: RANGEL : 1935 Requested By: Juana Lawler Order Number: [id number] MD: Conrad Lamas Measurements Intervals [place] Rate: 76 P: 35 [place]: 154 QRS: -31 QRSD: 86 T: 49 QT: 402 QTc: 453 Interpretive Statements Sinus rhythm Left axis deviation Compared to ECG 05/05/2018 10:18:17 Left-axis deviation now present Myocardial infarct finding no longer present Electronically Signed On 03-27-2019 8:25:19 SUPERVISOR FABRICATION by Conrad Lamas [email or web address] <ELECTRONICALLY SIGNED> By: Conrad Lamas MD 03/27/19 0825 1443 1443 Conrad Lamas MD /SLY
== END 2019-03-26 18:07 | disposition home or self-care (01) ==
LOC: ER 14:37
PROVIDERS: Emergency Medicine Emergency Medical Services
DX: R07.9 Chest pain, unspecified (principal); R10.32 Left lower quadrant pain; R60.0 Localized edema; I10 Essential (primary) hypertension; E11.9 Type 2 diabetes mellitus without complications; E78.00 Pure hypercholesterolemia, unspecified; G62.9 Polyneuropathy, unspecified; Z89.612 Acquired absence of left leg above knee; Z90.49 Acquired absence of other specified parts of digestive tract; Z86.14 Personal history of Methicillin resistant Staphylococcus aureus infection; Z88.6 Allergy status to analgesic agent

== ENCOUNTER → 2019-10-08 | Outpatient (CLI) | payer OTHER | LOC: RAD 14:43 | PROVIDERS: ATTEND Internal Medicine | DX: M25.551 Pain in right hip (principal) ==

== ENCOUNTER 2020-05-02 10:33 | Inpatient (IN) | payer OTHER ==
[~2020-05-02] VITALS: Ht 157.5 cm; Wt 93.6 kg
[2020-05-02 10:36] VITALS: BP 138/67
[2020-05-02] MEDS ORDERED: TRAZODONE HCL50 MG PO (10:44)
[2020-05-02 11:10] LABS: ABSOLUTE NEUTROPHILS 4.5 thou/uL (1.4-8.2); BASOPHILS 0.3 % (0.0-2.0); EOSINOPHILS 0.3 % (0.0-3.0); HEMATOCRIT 40.2 % (37.0-47.0); HEMOGLOBIN 13.6 gm/dL (12.0-15.0); LYMPHOCYTES 13.6 % (24.0-44.0); MCH 28.3 pg (26.0-34.0); MCHC 33.8 g/dL (28.0-37.0); MCV 83.8 fL (80.0-100.0); MONOCYTES 11.8 % (1.0-8.0); PLATELET COUNT 141 thou/uL (150-400); RDW 14.7 % (10.5-14.5); WBC 6.1 thou/uL (4.0-11.0)
[2020-05-02 11:12] LABS: CALCIUM 8.8 mg/dL (8.5-10.1); CREATININE 1.1 mg/dL (0.6-1.0); POTASSIUM 3.8 mmol/L (3.5-5.1)
[2020-05-02 11:18] LABS: TOTAL BILIRUBIN 0.7 mg/dL (0.2-1.0)
[2020-05-02 12:52] LABS: BE(vivo) -1.5 mmol/L (-2 to +3); HCO3 22.3 mmol/L (22.0-26.0); PCO2 34.9 mmHg (35.0-45.0); PO2 71.1 mmHg (80.0-100.0); pH 7.423 (7.360-7.450); sO2 94.8 % (92.0-98.0)
[2020-05-03] VITALS (9 sets, daily range): BP systolic 131–184; BP diastolic 59–89
[2020-05-03 04:26] LABS: HEMOGLOBIN 12.7 gm/dL (12.0-15.0); MCH 28.5 pg (26.0-34.0); MCHC 33.4 g/dL (28.0-37.0); MCV 85.5 fL (80.0-100.0); RBC 4.45 mil/uL (4.20-5.00); RDW 14.6 % (10.5-14.5); WBC 3.6 thou/uL (4.0-11.0)
[2020-05-03 04:43] LABS: CREATININE 1.1 mg/dL (0.6-1.0); POTASSIUM 3.8 mmol/L (3.5-5.1)
--- NOTE | 2020-05-03 06:46 | NUR ---
RECEIVED REPORT FROM ED RN.PT ARRIVED TO ROOM 358 AROUND 0240.PT A/O X 4.REPOSITIONED.EXTERNAL FEMALE CATH IN PLACE.NS AT 75 ML/HR.EXCORIATION NOTED ON HER BILATERAL GROIN.PT HAS LEFT BKA.PROSTHESIS AT BEDSIDE.POC CONTINUED.
--- NOTE | 2020-05-03 18:39 | HC ---
[facility] [place] [address] CONSULTATION Name: RAKAN PRAKASH Room #: 358-P ADM IN M.R.#: [id number] Admission: 05/02/20 Attend Phys: Warren Li MD Discharge: Date of : 35 Report #: [id number] THIS REPORT FOR: cc: Valentín Hernandez MD,Valentín Hernandez,Alex Horn MD ~ DATE OF SERVICE: 05/03/2020 REASON FOR CONSULTATION: I was asked to evaluate concerning COVID-19 infection. HISTORY OF PRESENT ILLNESS: The patient is 84 years old who presents to the Emergency Room with shortness of breath over the last several weeks. This has been associated with intermittent cough with minimal sputum production. No hemoptysis. No chest pain. Most of her complaint is malaise, poor appetite, transient loss of taste and smell. No diarrhea. The patient reports being exposed to COVID-19 earlier last week. REVIEW OF SYSTEMS: A 14-point review of system was negative other than what has been described above. ALLERGIES: CODEINE. MEDICATIONS: As noted on her MAR, which were reviewed. PAST MEDICAL HISTORY: Appendectomy, cholecystectomy, diabetes, hypertension, hyperlipidemia, left knee arthroscopic surgery, tumor base of the brain, status post radiation, ovarian cyst, peripheral neuropathy, right total shoulder arthroplasty, left BKA, hard of hearing, bilateral cataract extraction, left carpal tunnel release, typhoid fever, scarlet fever, chronic renal insufficiency. FAMILY HISTORY: No report of tuberculosis. SOCIAL HISTORY: Nonsmoker, no significant alcohol intake. PHYSICAL EXAMINATION: VITAL SIGNS: Afebrile and hemodynamically stable. GENERAL: She was alert, cooperative and pleasant, in no acute distress, lying in bed. She was on oxygen at 5 liters per nasal cannula with O2 saturation of 91%. SKIN: Without rash or decubitus. She had left BKA with prosthesis in place. No palpable adenopathy. She was obese. EYES: Without scleral icterus. MOUTH: Without mucositis. NECK: Supple. [facility] [address] [place] [address] CONSULTATION Name: RAKAN PRAKASH CARYN Room #: 358-P [facility] IN M.R.#: [id number] Admission: 05/02/20 Attend Phys: Warren Li MD Discharge: Date of : 35 Report #: [id number] LUNGS: Posterior crackles in the bases. HEART: Regular, without murmur, gallop or rub. ABDOMEN: Soft and nontender with no hepatosplenomegaly or mass. BACK: Nontender. NEUROLOGIC: Cranial nerves intact other than being hard of hearing. Strength in the upper and lower extremities was symmetric. Mood without anxiety or depression. LABORATORY STUDIES: Reviewed. MICROBIOLOGY: Reviewed. Chest x-ray reviewed. IMPRESSION: 1. An 84 years old with COVID-19 pneumonia, basilar infiltrates 2. Diabetes. 3. Hypertension. 4. Peripheral vascular disease. 5. Peripheral neuropathy. 6. Anxiety disorder, controlled. RECOMMENDATIONS: 1. We will continue IV antibiotic therapy, antiviral therapy, corticosteroids. 2. Follow serial laboratory studies and chest x-ray. 3. Continue in COVID isolation unit for cardiopulmonary monitoring. 4. I have discussed with nursing staff regarding plan of care. <ELECTRONICALLY SIGNED> By: Alex Hernandez MD 05/03/20 [id number] Alex Hernandez MD /nt
--- NOTE | 2020-05-03 18:41 | NUR ---
RN ASSUMED PT'S CARE AT 0700AM, PT IS A&OX3, PT IS ON O2 4L/MIN/NC, PT'S VS AND O2SAT ARE STABLE, PT STARTS IV ABX AND IV REMDESIVIR TODAY, PT GETS UP TO CHAIR WITH ASSIST, PT DENIES PAIN AND SOB BY THIS TIME, ID HAS SEEING PT , NEW ORDER , CONVALESCENT PLASMA-COVID 19 1 UNIT TRANSFUSION , PT HAS SIGNED THE CONSENT, RN WILL REPORT TO NEXT SHIFT ABOUT NEW ORDER.
--- NOTE | 2020-05-04 03:06 | NUR ---
CARE ASSUMED 1900. PT ALERT AND ORIENTED. DENIES PAIN, OR ANY CHEST DISCOMFORT. AT REPORTS SOB, WITH EXCERTION OR WITH ANY PERSISTENT COUGH; DRY COUGH. LUNG SOUNDS DIMINISHED, O2 TITRATED TO 7L , DUE TO O2 SATs IN THE 80s AND SOB. PT CURRENTLY AT 95% ON 7L,. DENIES SOB. CONVELESCENT PLASMA ADMINISTERED OVERNIGHT. NO REACTION NOTED. VITALS STABLE. VOIDING BY THE PUREWICK. WILL CONTINUE TO MONITOR AND FOLLOW POC.
[2020-05-04 03:23] VITALS: BP 154/79
[2020-05-04 06:02] LABS: ABSOLUTE NEUTROPHILS 5.3 thou/uL (1.4-8.2); BASOPHILS 0.1 % (0.0-2.0); HEMATOCRIT 40.7 % (37.0-47.0); HEMOGLOBIN 13.5 gm/dL (12.0-15.0); LYMPHOCYTES 13.6 % (24.0-44.0); MCH 28.3 pg (26.0-34.0); MCHC 33.3 g/dL (28.0-37.0); MONOCYTES 12.2 % (1.0-8.0); PLATELET COUNT 193 thou/uL (150-400); POLYS 74.1 % (36.0-66.0); RBC 4.79 mil/uL (4.20-5.00); RDW 14.9 % (10.5-14.5); WBC 7.1 thou/uL (4.0-11.0)
[2020-05-04 06:19] LABS: FIBRINOGEN 373.8 mg/dL (210-360); INR 1.1; PROTIME 11.7 Seconds (9.3-11.4)
[2020-05-04 06:22] LABS: DIRECT BILIRUBIN 0.1 mg/dL (<0.1-0.2); PHOSPHORUS 2.3 mg/dL (2.5-4.9)
[2020-05-04 06:29] LABS: ALBUMIN 2.7 g/dL (3.4-5.0); CALCIUM 8.6 mg/dL (8.5-10.1); CREATININE 1.2 mg/dL (0.6-1.0); POTASSIUM 3.7 mmol/L (3.5-5.1); TOTAL BILIRUBIN 0.3 mg/dL (0.2-1.0); TOTAL PROTEIN 6.8 g/dL (6.4-8.2)
[2020-05-04 08:43] VITALS: BP 138/57
[2020-05-04 12:00] VITALS: BP 142/66
--- NOTE | 2020-05-04 15:20 | NUR ---
INITIAL ASSESSMENT: Received consult. SW reviewed chart and spoke with nursing and attending physician. Pt was admitted from home due to acute respiratory failure. Pt placed in Enhanced Isolation due to COVID-19. PT is afebrile and on 7L of O2. Pt is on IV abx and IV steroids. Pt had convalescent plasma last night and is completing Remdesivir and Ivermectin. MONIE placed call to pt's room. No answer. MONIE placed call to listed contact number: [phone]. No option to leave voice mail. Per chart, pt is alert/orientated and lives at home alone. Pt with hx of left BKA and has a prosthesis. Ramp to enter her home. Pt has used [facility] for HH in the past and has been to [facility]. Therapy is recommending HH at this time. SW to continue to follow up with pt to discuss discharge needs.
[2020-05-04 15:30] VITALS: BP 150/70
[2020-05-04 20:11] VITALS: BP 169/84
[2020-05-05 04:07] VITALS: BP 177/80
[2020-05-05 06:12] LABS: HEMATOCRIT 41.3 % (37.0-47.0); HEMOGLOBIN 13.8 gm/dL (12.0-15.0); MCH 28.3 pg (26.0-34.0); MCHC 33.4 g/dL (28.0-37.0); MCV 84.8 fL (80.0-100.0); RBC 4.87 mil/uL (4.20-5.00); RDW 14.5 % (10.5-14.5); WBC 8.8 thou/uL (4.0-11.0)
[2020-05-05 06:30] LABS: ALBUMIN 2.6 g/dL (3.4-5.0); CALCIUM 8.7 mg/dL (8.5-10.1); DIRECT BILIRUBIN 0.1 mg/dL (<0.1-0.2); PHOSPHORUS 1.6 mg/dL (2.6-4.7); POTASSIUM 3.3 mmol/L (3.5-5.1); TOTAL BILIRUBIN 0.4 mg/dL (0.2-1.0); TOTAL PROTEIN 6.4 g/dL (6.4-8.2)
[2020-05-05 07:05] VITALS: BP 154/60
[2020-05-05 11:50] VITALS: BP 162/81
--- NOTE | 2020-05-05 15:37 | NUR ---
MONIE reviewed chart and spoke with nursing and attending physician. Pt remains in Enhanced Isolation due to COVID-19. Pt is afebrile and on 7L of O2. Pt requires up to 15L with activity. PT is on IV abx and IV steroids. Pt is completing course of Remdesivir. MONIE placed multiple calls to pt's room. No answer. MONIE spoke with pt's friend, Tabitha, via phone. Introduced role of MONIE. Per Tabitha, pt is [place] and has difficulty communicating via phone. Pt does lives at home alone and has DME in place. Pt received in-home care through her Medicaid for 35 hours per week. Pt has used HH in the past. Pt's PCP is Dr. Ravin Hernandez. SW provided update to Tabitha, who is hopeful that pt is able to return home. MONIE is following to assist as needed with discharge planning.
[2020-05-05 16:05] VITALS: BP 171/88
[2020-05-05 19:40] VITALS: BP 153/87
--- NOTE | 2020-05-05 22:04 | NUR ---
PT RESTING IN BED. O2 PER NC. PT SOA WITH REPOSITIONING. LUNGS DIMINISHED. PT IS EXTREMELY [place]. PT STATED SHE IS DRINKING REG WATER NOT NECTAR, PT PROVIDED NECTAR AND PROVIDED COPY OF DRS ORDER. PT COMPLIANT WITH MEDS IN APPLESAUCE. PT REPETITIVELY AND LOUDLY SPEAKS HER STATEMENTS. RORY. FEMALE EXT CATH INTACT. BED ALARM ON. HEARING AIDE PLACED IN CASE.
[2020-05-06 04:26] VITALS: BP 157/90
[2020-05-06 06:02] LABS: HEMATOCRIT 42.7 % (37.0-47.0); HEMOGLOBIN 14.2 gm/dL (12.0-15.0); MCH 27.8 pg (26.0-34.0); MCHC 33.3 g/dL (28.0-37.0); MCV 83.4 fL (80.0-100.0); RBC 5.13 mil/uL (4.20-5.00); RDW 14.8 % (10.5-14.5); WBC 9.6 thou/uL (4.0-11.0)
[2020-05-06 06:34] LABS: ALBUMIN 2.8 g/dL (3.4-5.0); CALCIUM 9.1 mg/dL (8.5-10.1); DIRECT BILIRUBIN 0.2 mg/dL (<0.1-0.2); PHOSPHORUS 2.5 mg/dL (2.6-4.7); POTASSIUM 3.5 mmol/L (3.5-5.1); TOTAL BILIRUBIN 0.6 mg/dL (0.2-1.0); TOTAL PROTEIN 6.6 g/dL (6.4-8.2)
[2020-05-06 08:18] VITALS: BP 150/89
[2020-05-06 09:27] LABS: BE(vivo) 4.8 mmol/L (-2 to +3); HCO3 25.8 mmol/L (22.0-26.0); PCO2 28.7 mmHg (35.0-45.0); pH 7.571 (7.360-7.450); sO2 89.9 % (92.0-98.0)
[2020-05-06 09:28] LABS: PO2 48.2 mmHg (80.0-100.0)
[2020-05-06 11:31] VITALS: BP 156/56
--- NOTE | 2020-05-06 11:56 | NUR ---
Nutrition: Pt admitted with acute respiratory insuficiency, COVID (+). Appetite appears fair, consuming avg of 58% at meals. Noted pt on nectar thick liquids, glucerna ordered BID. Will also add ensure pudding BID. Weight 180-184# since admit. No pressure ulcers noted. No c/o GI distress. Pt remains low nutritional risk with current interventions.
--- NOTE | 2020-05-06 13:24 | NUR ---
SW reviewed chart and spoke with nursing and attending physician. Pt remains in Enhanced Isolation due to COVID. Pt is afebrile and on O2. NRB mask placed on pt this morning. Pt is on IV abx and IV steroids. Pt is completeing course of Remdesivir. MONIE is following to assist as needed with discharge planning.
[2020-05-06 17:00] VITALS: BP 144/78
--- NOTE | 2020-05-06 19:01 | NUR ---
PATIENT APPEARS QUITE DISTRESS. SHE KEEPS ON REPEATING HERSELF ON WHATEVER TOPOIC SHE IS ON. NOT EASILY REDIRECTED. INCONT OF BOWEL TWICE. WILL CONT WITH PLAN OF CARE.
[2020-05-06 19:20] VITALS: BP 149/84
--- NOTE | 2020-05-06 20:59 | NUR ---
PT RESTING IN BED. WATCHING TV. NC AT 12L, LUNGS WITH WHEEZES. PT REPORTS FEELING BETTER TODAY. PT EXTREMELY [place], MAKES REPETITIVE STATEMENTS AND QUESTIONS, CONTINUES WITH FRETTING AND ANXIETY. PT RECEIVES ANSWERS BETTER WITH NON VERBAL CUES. EXT FEMALE CATH INTACT. PT COMPLIANT WITH MEDICATIONS WHOLE IN APPLESAUCE. PT PROVIDED NECTAR LIQUIDS. PT IS SOB WITH CONVERSATION. BED ALARM ON.
[2020-05-07 04:40] VITALS: BP 155/84
[2020-05-07 06:12] LABS: ALBUMIN 2.4 g/dL (3.4-5.0); CALCIUM 8.9 mg/dL (8.5-10.1); CREATININE 1.1 mg/dL (0.6-1.0); DIRECT BILIRUBIN 0.1 mg/dL (<0.1-0.2); PHOSPHORUS 3.4 mg/dL (2.6-4.7); POTASSIUM 4.2 mmol/L (3.5-5.1); TOTAL BILIRUBIN 0.4 mg/dL (0.2-1.0)
[2020-05-07 07:33] VITALS: BP 150/79
[2020-05-07 08:23] LABS: BE(vivo) 1.7 mmol/L (-2 to +3); HCO3 23.9 mmol/L (22.0-26.0); PCO2 31.1 mmHg (35.0-45.0); pH 7.504 (7.360-7.450); sO2 94.8 % (92.0-98.0)
--- NOTE | 2020-05-07 14:02 | NUR ---
SW reviewed chart and spoke with nursing and attending physician. Pt remains in Enhanced Isolation due to COVID. Pt is afebrile and on 12L of O2. Pt is on IV abx and IV steroids. Pt is completing Ivermectin and Remdesivir. No weekend discharge planned. SW left voice message for pt's friend, Tabitha, to provide update. MONIE is following to assist as needed with discharge planning.
[2020-05-07 15:33] VITALS: BP 138/80
--- NOTE | 2020-05-07 16:27 | NUR ---
ASSUMED CARE OF PT AT 0700. PT ALERT AND ORIENTED X4, IN NO ACUTE DISTRESS. APPEARS LESS CONFUSED AND ANXIOUS THAN YESTERDAY. LLE PAIN WELL CONTROLLED WITH ANALGESICS. REMAINS ON 12L NC. GOOD APPETITE. MOTIVATED TO GET BETTER. WCM.
[2020-05-07 19:21] VITALS: BP 132/52
--- NOTE | 2020-05-08 03:27 | NUR ---
CONTINUES ON 12 LITERS N/C. DENIES SHORTNESS OF BREATH. SHE DOES NOT LIKE TO BE UNCOVERED, SHE GETS COLD EASILY. VOICES HER NEEDS AND CONCERNS READILY. DENIES PAIN. CAREPLAN REVIEWED.
[2020-05-08 04:29] VITALS: BP 143/72
[2020-05-08 06:19] LABS: HEMATOCRIT 41.9 % (37.0-47.0); HEMOGLOBIN 13.9 gm/dL (12.0-15.0); MCV 84.7 fL (80.0-100.0); RBC 4.95 mil/uL (4.20-5.00); RDW 14.3 % (10.5-14.5)
[2020-05-08 07:04] LABS: ALBUMIN 2.4 g/dL (3.4-5.0); CALCIUM 8.6 mg/dL (8.5-10.1); CREATININE 1.2 mg/dL (0.6-1.0); DIRECT BILIRUBIN 0.1 mg/dL (<0.1-0.2); PHOSPHORUS 4.5 mg/dL (2.5-4.9); POTASSIUM 4.8 mmol/L (3.5-5.1); TOTAL BILIRUBIN 0.4 mg/dL (0.2-1.0)
[2020-05-08 07:12] VITALS: BP 149/67
--- NOTE | 2020-05-08 10:18 | NUR ---
DURING PT AM MEDICATION ADMIN, PT STARTED TO DESAT TO LOW 80'S WHEN TAKING IN MEDICATION AND FOOD. PT HAVING DIFFICULTY RETURN SAT LEVELS TO NORMAL. INFORMED RT.
[2020-05-08 11:37] VITALS: BP 132/62
--- NOTE | 2020-05-08 15:34 | NUR ---
pt resting in bed, no complaints pain or SOB at this time.
[2020-05-08 16:44] VITALS: BP 144/66
--- NOTE | 2020-05-08 17:48 | NUR ---
purewick changed and jackson care provided. pt tolerated well.
[2020-05-08 19:56] VITALS: BP 132/64
[2020-05-09 03:48] VITALS: BP 134/80
[2020-05-09 05:33] LABS: FIBRINOGEN 239.7 mg/dL (210-360); INR 1.2; PROTIME 12.1 Seconds (9.3-11.4)
[2020-05-09 05:46] LABS: D-DIMER 2.82 ug/mLFEU (0.19-0.50)
[2020-05-09 05:55] LABS: ALBUMIN 2.4 g/dL (3.4-5.0); CALCIUM 8.5 mg/dL (8.5-10.1); CREATININE 1.1 mg/dL (0.6-1.0); DIRECT BILIRUBIN 0.1 mg/dL (<0.1-0.2); HEMATOCRIT 43.1 % (37.0-47.0); HEMOGLOBIN 14.2 gm/dL (12.0-15.0); MCHC 32.9 g/dL (28.0-37.0); PHOSPHORUS 4.1 mg/dL (2.6-4.7); PLATELET COUNT 237 thou/uL (150-400); RBC 5.08 mil/uL (4.20-5.00); RDW 14.8 % (10.5-14.5); TOTAL BILIRUBIN 0.3 mg/dL (0.2-1.0); TOTAL PROTEIN 5.9 g/dL (6.4-8.2); WBC 17.5 thou/uL (4.0-11.0)
--- NOTE | 2020-05-09 06:56 | NUR ---
continues on the optiflo 82 % oxygen. she asks for the hydrococdone when needed, complains of left leg pain. cooperative, with cares. refused to allow the nystatin to be placed this am. she stated that she is too cold.
[2020-05-09 07:17] VITALS: BP 144/77
[2020-05-09 07:25] LABS: ABSOLUTE NEUTROPHILS 15.1 thou/uL (1.4-8.2); NUCLEATED RBCS 1 /100WBC; PLATELET ESTIMATE NORMAL
[2020-05-09 15:53] VITALS: BP 111/59
[2020-05-09 22:08] VITALS: BP 100/67
[2020-05-10 03:38] VITALS: BP 129/69
[2020-05-10 06:39] LABS: HEMATOCRIT 44.1 % (37.0-47.0); HEMOGLOBIN 14.1 gm/dL (12.0-15.0); MCH 27.8 pg (26.0-34.0); MCV 86.8 fL (80.0-100.0); RBC 5.08 mil/uL (4.20-5.00); WBC 14.8 thou/uL (4.0-11.0)
[2020-05-10 06:59] LABS: ALBUMIN 2.2 g/dL (3.4-5.0); CALCIUM 8.5 mg/dL (8.5-10.1); CREATININE 1.4 mg/dL (0.6-1.0); DIRECT BILIRUBIN 0.1 mg/dL (<0.1-0.2); PHOSPHORUS 4.5 mg/dL (2.6-4.7); POTASSIUM 5.2 mmol/L (3.5-5.1); TOTAL BILIRUBIN 0.3 mg/dL (0.2-1.0); TOTAL PROTEIN 5.6 g/dL (6.4-8.2)
--- NOTE | 2020-05-10 07:10 | NUR ---
Pt. anxious at beginning of shift. She requested ice cream with her Hs meds. Repositioned for comfort . Denies need for pain med. Maintaining O2 sat greater than 90% on Optiflow at 50 L/83 % FIO2.Cont. on enhanced precaution, afebrile. External cath in place and changed this am.
[2020-05-10 07:56] VITALS: BP 110/61
[2020-05-10 11:20] VITALS: BP 100/47
--- NOTE | 2020-05-10 14:28 | NUR ---
SW reviewed chart and spoke with nursing and attending physician. Pt remains in Enhanced Isolation due to COVID. Pt is afebrile and requiring optiflow. Pt is on IV abx and IV steroids. Pt is completing course of Remdesivir. Pt wanting to continue aggressive treatment at this time. Will need therapy to work with pt to assist with recommendations for discharge. SW is following to assist as needed with discharge planning.
[2020-05-10 15:43] VITALS: BP 115/56
[2020-05-10 20:00] VITALS: BP 147/93
[2020-05-11 03:56] VITALS: BP 126/71
--- NOTE | 2020-05-11 04:22 | NUR ---
Pt. requested for pain med at HS. Hydrocodone given at HS with good relief. She slept well during the night. Maintaining O2 sat in the low to mid 90's on Optiflow at 80%. Incont. of blader , external cath placed. Nystatin powder applied to finesse groin and abdominal folds. A fib with controlled rate. Cont. on enhanced precaution , afebrile.
[2020-05-11 05:53] LABS: HEMATOCRIT 42.7 % (37.0-47.0); HEMOGLOBIN 13.6 gm/dL (12.0-15.0); MCH 27.6 pg (26.0-34.0); MCHC 31.8 g/dL (28.0-37.0); MCV 86.7 fL (80.0-100.0); RBC 4.92 mil/uL (4.20-5.00); RDW 14.9 % (10.5-14.5); WBC 15.1 thou/uL (4.0-11.0)
[2020-05-11 06:21] LABS: ALBUMIN 2.2 g/dL (3.4-5.0); ANION GAP 4 mmol/L (7-16); BUN 50 mg/dL (7-18); CALCIUM 8.4 mg/dL (8.5-10.1); CHLORIDE 103 mmol/L (98-107); CO2 28 mmol/L (21-32); CREATININE 1.3 mg/dL (0.6-1.0); DIRECT BILIRUBIN < 0.1 mg/dL (<0.1-0.2); GLUCOSE 102 mg/dL (74-106); PHOSPHORUS 4.3 mg/dL (2.6-4.7); POTASSIUM 5.3 mmol/L (3.5-5.1); SGOT 10 U/L (15-37); SGPT 11 U/L (14-59); SODIUM 135 mmol/L (136-145); TOTAL BILIRUBIN 0.3 mg/dL (0.2-1.0); TOTAL PROTEIN 5.3 g/dL (6.4-8.2)
[2020-05-11 07:22] VITALS: BP 132/62
[2020-05-11 11:25] VITALS: BP 130/78
--- NOTE | 2020-05-11 14:29 | NUR ---
CARE ASSUMED AT 0700, ALERT AND ORIENTED X4, BILL [place]. PT CONTINUES TO BE ON OPTIFLOW 50L, SOB WITH EXERTION. ANXIOUS AT TIMES. PT IS SLOWLY PROGRESSING TOWARDS CARE. FALL PRECAUTIONS IN PLACE. DENIES ANY NEEDS AT MOMENT. WILL CONTINUE TO MONITOR.
[2020-05-11 15:20] VITALS: BP 124/64
[2020-05-11 20:04] VITALS: BP 122/57
[2020-05-12 03:21] VITALS: BP 133/86
[2020-05-12 06:03] LABS: HEMATOCRIT 42.3 % (37.0-47.0); HEMOGLOBIN 13.6 gm/dL (12.0-15.0); MCH 28.1 pg (26.0-34.0); MCHC 32.1 g/dL (28.0-37.0); MCV 87.4 fL (80.0-100.0); RBC 4.85 mil/uL (4.20-5.00); RDW 15.4 % (10.5-14.5)
[2020-05-12 06:14] LABS: CALCIUM 8.3 mg/dL (8.5-10.1); CREATININE 1.3 mg/dL (0.6-1.0); POTASSIUM 5.1 mmol/L (3.5-5.1)
--- NOTE | 2020-05-12 08:05 | NUR ---
Pt. requested pain med , hydrocodone given with good relief. She slept well during the night. Cont. on enhanced precaution, afebrile. Maintaining O2 sat greater than 90% on Optiflow. Shortness of breath with exertion.Incontinent of bladder , external cath in placed. Nystatin powder applied to finesse groin/abd'l fold after cleaning.
[2020-05-12 11:05] VITALS: BP 122/54
--- NOTE | 2020-05-12 14:57 | NUR ---
SW reviewed chart and spoke with nursing and attending physician. Pt remains in Enhanced Isolation due to COVID. Pt is afebrile and requiring optiflow. Pt is on IV abx and IV steroids. Pt wanting to continue aggressive treatment for COVID at this time. PT/OT is working with pt. SW is following to assist as needed with discharge planning.
[2020-05-12 15:26] VITALS: BP 127/55
--- NOTE | 2020-05-12 18:08 | NUR ---
PT CONTINUED TO BE IN ENHANCED PRECAUTION. DENIES ANY NAUSEA AND VOMITTING. OPTIFLOW CONTINUE TO BE AT 50L, SOB WITH EXERTION. ANXIOUS AT TIMES. PRUNE JUICE GIVEN FOR CONSTIPATION. FALL PRECAUTIONS IN PLACE. WILL CONTINUE TO MONITOR. .
[2020-05-12 20:03] VITALS: BP 126/62
[2020-05-12 23:11] VITALS: BP 135/56
--- NOTE | 2020-05-13 00:14 | NUR ---
PT ALER5 AND ORIENTED X4. PASCUA YAQUI. VSS AEBRILE. C/O PAIN TO LLE. PAIN PILL GIVEN AND TRAZADONE FOR SLEEP. SHE IS RESTING QUIETLY PRESENTLY. NO S/S DISTRESS. BED DOWN CALL LIGHT IN REACH. BED ALARM IS ON.
[2020-05-13 04:16] VITALS: BP 114/61
[2020-05-13 05:30] LABS: HEMATOCRIT 40.2 % (37.0-47.0); MCHC 32.3 g/dL (28.0-37.0); MCV 86.7 fL (80.0-100.0); RBC 4.63 mil/uL (4.20-5.00); RDW 15.4 % (10.5-14.5); WBC 18.7 thou/uL (4.0-11.0)
[2020-05-13 06:02] LABS: CALCIUM 8.7 mg/dL (8.5-10.1); CREATININE 1.3 mg/dL (0.6-1.0); POTASSIUM 5.1 mmol/L (3.5-5.1)
--- NOTE | 2020-05-13 06:20 | NUR ---
PT RESTING QUIETLY. VSS AFEBRILE. UNLABORED WITH OPTI-NERISSA.
[2020-05-13 08:25] VITALS: BP 104/67
--- NOTE | 2020-05-13 08:46 | NUR ---
Nutrition Note: Pt admitted with acute respiratory insufficiency, COVID (+). Appetite appears fair, consuming avg of 58% at meals. Noted pt on mechanical chopped diet, ensure enlive BID. Drinking supplements well and appetite appears fair to good. Wt +10# from admission. No PU noted. Pt remains low nutritional risk with current interventions.
--- NOTE | 2020-05-13 11:18 | NUR ---
CARE ASSUMED AM, PT ALERT AND ORIENTED X4, DENIES ANY NAUSEA, VOMITTING AND CHEST PAIN. ASSESSMENT AND VITALS SIGNS STABLE.CONTINUE TO BE ON OPTIFLOW AT 50L, SOB WITH EXERTION. EXTERNAL CATHETER IN PLACE. GAVE PT A BED BATH, STATED FEELING MUCH BETTER. FALL PRECAUTIONS IN PLACE. DENIES ANY NNEDS AT MOMENET. WILL CONTINUE TO MONITOR.
[2020-05-13 11:35] VITALS: BP 114/74
--- NOTE | 2020-05-13 14:39 | NUR ---
SW reviewed chart and spoke with nursing and attending physician. Pt remains in Enhanced Isolation due to COVID. Pt is afebrile and requiring optiflow. Pt is on IV steroids. SW is following to assist as needed with discharge planning.
[2020-05-13 16:18] VITALS: BP 112/65
[2020-05-13 19:04] VITALS: BP 127/75
--- NOTE | 2020-05-13 21:14 | NUR ---
PT ASLEEP IN BED AT BEGINNING OF SHIFT. PT EASILY AROUSED. O2 NC 6L. PT REMAINS VERY [place]. PALE SKIN TONE. FEMALE EXT CATHETER. PT STATED SHE WANTS TO GO TO BED AND BE COVERED WITH BLANKETS. COMPLIANT WITH MEDS IN APPLESAUCE. BED ALARM ON.
[2020-05-14 03:28] VITALS: BP 140/77
[2020-05-14 07:13] VITALS: BP 145/88
[2020-05-14 11:00] VITALS: BP 148/123
[2020-05-14 11:32] VITALS: BP 148/123
--- NOTE | 2020-05-14 14:18 | NUR ---
SW reviewed chart and spoke with nursing and attending physician. Pt remains in Enhanced Isolation due to COVID. Pt is afebrile and on 6-11L of O2. Pt is on IV steroids. 5N consulted to evaluate pt for inpt acute rehab. Pt is unable to tolerate 3 hours of therapy at this time. Recommendation made for pt to go to a SNF. Pt is very [place] and unable to communicate via phone. SW left voice message for pt's friend, Tabitha, to discuss discharge plan. No weekend discharge planned. Will need insurance auth for SNF placement. SW is following to assist as needed with discharge planning.
[2020-05-14 15:29] VITALS: BP 148/81
--- NOTE | 2020-05-14 18:25 | NUR ---
PATIENT CONT CALLS OUT TO NURSE TO HAVE ICECREAM EVEN THOUGH BLOOD SUGARS ARE GREATER THAN 350. EDUCATED PATIENT ON NEED NOT TO HAVE HAVE SWEETS BUT SHE KEEPS ON SCREAMING. WILL RECHECK BS AND GO FROM THERE. KEPT CLEAN AND DRY. WILL CONT WITH PLAN OF CARE.
[2020-05-14 19:09] VITALS: BP 117/60
[2020-05-15 03:53] VITALS: BP 131/53
[2020-05-15 06:20] LABS: HEMATOCRIT 37.8 % (37.0-47.0); HEMOGLOBIN 12.3 gm/dL (12.0-15.0); MCH 28.3 pg (26.0-34.0); MCHC 32.5 g/dL (28.0-37.0); MCV 87.2 fL (80.0-100.0); RBC 4.33 mil/uL (4.20-5.00); RDW 15.5 % (10.5-14.5); WBC 14.7 thou/uL (4.0-11.0)
--- NOTE | 2020-05-15 06:38 | NUR ---
continues on 6 liters oxygen n/c. turns, and attention needed frequently. complains of hunger. she is stating that she is doing better overall.
[2020-05-15 06:41] LABS: CALCIUM 8.7 mg/dL (8.5-10.1); CREATININE 1.3 mg/dL (0.6-1.0); POTASSIUM 5.7 mmol/L (3.5-5.1)
[2020-05-15 07:22] VITALS: BP 118/69
[2020-05-15 11:05] VITALS: BP 124/67
[2020-05-15 16:05] VITALS: BP 119/58
--- NOTE | 2020-05-15 18:43 | NUR ---
ASSUMED PATIENT CARE AT 0700. ALERT TO SELF. GOOD APPETITE. VSS. SLOWLY TOWARDS POC GOALS.
[2020-05-15 19:26] VITALS: BP 134/64
[2020-05-16 04:03] LABS: CALCIUM 8.5 mg/dL (8.5-10.1); CREATININE 1.2 mg/dL (0.6-1.0)
[2020-05-16 04:05] LABS: POTASSIUM 5.7 mmol/L (3.5-5.1)
[2020-05-16 04:10] LABS: HEMATOCRIT 40.3 % (37.0-47.0); HEMOGLOBIN 12.8 gm/dL (12.0-15.0); MCH 28.5 pg (26.0-34.0); MCHC 31.9 g/dL (28.0-37.0); MCV 89.3 fL (80.0-100.0); RBC 4.51 mil/uL (4.20-5.00); RDW 15.2 % (10.5-14.5); WBC 19.4 thou/uL (4.0-11.0)
--- NOTE | 2020-05-16 04:26 | NUR ---
continues on 6 liters n/c. hydrocodoen effective for pain control. she has been complaining that she is very chilled tonight. afebrile. encouraged turns. caerplan reviewed. resting quietly overnight.
[2020-05-16 04:40] VITALS: BP 117/71
[2020-05-16 07:33] VITALS: BP 121/69
[2020-05-16 11:17] VITALS: BP 124/64
[2020-05-16 16:08] VITALS: BP 115/93
--- NOTE | 2020-05-16 18:25 | NUR ---
ASSUMED PATIENT CARE AT 0700. ALERT TO SELF. GOOD APPATITE. ON 5L/NC TOLERATED WELL. SLOWLY TOWARDS POC GOALS.
[2020-05-16 19:52] VITALS: BP 107/63
--- NOTE | 2020-05-17 00:10 | NUR ---
PT PROGRESSING TOWARDS D/C GOALS VSS AFEBRILE. UNLABORED ON 5LNC. LUNGS SOUND DIMINISHED AT BASES. C/O LLE PAIN. MEDICATED WITH PAIN PILL WITH ADEQUATE RELIEF OBTAINED. SHE IS PRESENTLY SLEEPING. NO S/S DISTRESS PRESENTLY. HS SKIN CARE DONE PRIOR TO SLEEP ORDERED.
[2020-05-17 03:54] VITALS: BP 104/60
[2020-05-17 06:02] LABS: HEMATOCRIT 37.3 % (37.0-47.0); MCH 28.5 pg (26.0-34.0); MCHC 32.2 g/dL (28.0-37.0); MCV 88.3 fL (80.0-100.0); RBC 4.22 mil/uL (4.20-5.00); RDW 15.6 % (10.5-14.5); WBC 14.6 thou/uL (4.0-11.0)
--- NOTE | 2020-05-17 06:18 | NUR ---
PT RESTING QUIETLY. NO S/S DISTRESS. VSS AFEBRILE.
[2020-05-17 06:30] LABS: CALCIUM 8.3 mg/dL (8.5-10.1); CREATININE 1.3 mg/dL (0.6-1.0); POTASSIUM 5.3 mmol/L (3.5-5.1)
[2020-05-17 07:23] VITALS: BP 114/56
[2020-05-17 11:53] VITALS: BP 112/59
--- NOTE | 2020-05-17 14:06 | NUR ---
MONIE reviewed chart and spoke with nursing and attending physician. Pt remains in Enhanced Isolation due to COVID-19. Pt is afebrile and on 5L of O2. Pt requires additional O2 with activity. Pt is on IV steroids. MONIE discussed pt's d/c plan wit therapy, who states that pt is difficult to communicate with due to being extremely hard of hearing. Request made for pt's family to bring in batteries for hearing aids. MONIE spoke with pt's friend, Tabitha, via phone to discuss discharge plan. Tabitha states that she had brought hearing aid batteries last week and again yesterday for pt. Tabitha states pt had an appt with ENT, Dr. Ackerman, last week, but cancelled due to being hospitalized. Tabitha states that pt follows with ENT for ongoing issues with her ears and hearing devices. Pt has been to [facility] in the past for short term skilled. MONIE contacted [facility] liaison, who states they are unable to review pts until they are 3-4 weeks post COVID positive test. MONIE discussed with Tabitha to discuss additional facilities. Tabitha requests referral to [facility] due to location. Per Tabitha, pt does not like having to be in a care for longer than a few minutes for transport. MONIE faxed referral and notified [facility] post-acute liaison of new referral. Will need insurance authorization. MONIE updated attending physician. ENT will be consulted. MONIE is following to assist as needed with discharge planning.
[2020-05-17 16:01] VITALS: BP 124/54
[2020-05-17 20:05] VITALS: BP 123/55
--- NOTE | 2020-05-18 00:14 | NUR ---
PT ALERT AND ORIENTED. VERY [place]. VSS AFEBRILE. SATS WNL. HYDROCODONE GIVEN FOR LLE PAIN. TRAZADONE GIVEN FOR SLEEP. BED DOWN. CALL LIGHT IN REACH. BED ALARM ON. NYSTATIN TO GROIN. MOISTURE BARRIER APPLIED TO BUTTOCKS. REPOSITIONED. WILL CONTINUE TO MONITOR FOR CHANGES.
[2020-05-18 03:50] VITALS: BP 138/54
[2020-05-18 07:24] VITALS: BP 107/53
--- NOTE | 2020-05-18 07:38 | NUR ---
PT RESTING QUIETLY WAITING FOR BF. UNEVENTFUL NIGHT.
--- NOTE | 2020-05-18 14:29 | NUR ---
MONIE reviewed chart and spoke with nursing and attending physician. Pt remains in Enhanced Isolation due to COVID. Pt is on 5L of O2. ENT consult ordered today. MONIE faxed clinical/therapy updates to [facility] for review. Discussed with [facility] post-acute liaison. [facility] can accommodate up to 7L of O2. MONIE spoke with pt's friend, Tabitha, via phone to provide update. Tabitha is aware and in agreement with plan for pt to discharge to [facility] when medically stable and insurance authorization obtained. MONIE is following to assist as needed with discharge planning.
[2020-05-18 15:48] VITALS: BP 138/69
--- NOTE | 2020-05-18 16:33 | NUR ---
ASSUMED PATIENT CARE AT 0700, ALERT TO SELF. NO DISTRESS NOTED. WORK WITH PT/OT. SLOWLY TOWARDS POC GOALS.
[2020-05-18 20:03] VITALS: BP 113/56
--- NOTE | 2020-05-19 03:41 | NUR ---
Pt. slept well during the night. Woke up this am with c/o left leg pain (BKA). Hydrocodone given with good relief. A fib with controlled rate. Maintaining O2 sat in the low to mid 90's on 5L/NC. She does get short of breath with exertion. Assisted to reposition prn otherwise able to turn self from side to side. Cont. on enhanced precaution , afebrile. Incontinent of bladder , ext. cath in place. Bed alarm on for safety. Making some progress towards care plan goals.
[2020-05-19 04:43] VITALS: BP 108/55
[2020-05-19 05:56] LABS: CALCIUM 8.6 mg/dL (8.5-10.1); CREATININE 1.1 mg/dL (0.6-1.0); POTASSIUM 5.3 mmol/L (3.5-5.1)
[2020-05-19 06:09] LABS: HEMATOCRIT 37.8 % (37.0-47.0); HEMOGLOBIN 11.9 gm/dL (12.0-15.0); MCH 28.1 pg (26.0-34.0); MCHC 31.4 g/dL (28.0-37.0); MCV 89.4 fL (80.0-100.0); RBC 4.22 mil/uL (4.20-5.00); RDW 15.5 % (10.5-14.5); WBC 13.5 thou/uL (4.0-11.0)
[2020-05-19 07:26] VITALS: BP 101/54
--- NOTE | 2020-05-19 14:19 | NUR ---
MONIE reviewed chart and spoke with nursing and attending physician. Pt remains in Enhanced Isolation due to COVID. Pt is afebrile and on 1-4L of O2. Pt is on IV steroids. ENT consult is pending. MONIE faxed clinical/therapy updates to [facility] to submit for insurance authorization. Update provided to [facility] post-acute liaison. MONIE is following to assist as needed with discharge planning.
[2020-05-19 15:19] VITALS: BP 101/55
--- NOTE | 2020-05-19 18:35 | NUR ---
ASSUMED PATIENT CARE AT 0700. A/0 X3. TITRATED 02 TO 1L. NEEDS MORE 02 WITH ACTIVITY. PROGRESSING TOWARDS POC GOALS.
[2020-05-19 19:20] VITALS: BP 107/60
[2020-05-20 05:45] VITALS: BP 101/46
[2020-05-20 05:49] LABS: HEMOGLOBIN 12.1 gm/dL (12.0-15.0); MCH 28.4 pg (26.0-34.0); MCHC 31.9 g/dL (28.0-37.0); MCV 89.1 fL (80.0-100.0); RBC 4.26 mil/uL (4.20-5.00); RDW 16.1 % (10.5-14.5); WBC 19.2 thou/uL (4.0-11.0)
[2020-05-20 05:53] LABS: CALCIUM 8.5 mg/dL (8.5-10.1); MAGNESIUM 2.3 mg/dL (1.8-2.4)
[2020-05-20 06:11] LABS: POTASSIUM 5.4 mmol/L (3.5-5.1)
--- NOTE | 2020-05-20 06:36 | NUR ---
PT IS A/0X2, VERY [place] AND WEAK. EXTERNAL CATH IN PLACE. PAIN MANAGEMENT AND IVF/IVPB PER PLAN OF CARE. PT NOW IS ON 1L VIA NASAL CANNULA.
[2020-05-20 07:45] VITALS: BP 105/60
--- NOTE | 2020-05-20 09:25 | NUR ---
Nutrition Note: Pt admitted with acute respiratory insufficiency, COVID (+). Appetite appears to be doing well. Eating 100% of meals. Receiving ensure BID. Wt +5# over previous 7 days. No PU noted. PT remains low nutritional risk.
--- NOTE | 2020-05-20 14:55 | NUR ---
MONIE reviewed chart and spoke with nursing and attending physician. Pt remains in Enhanced Isolation due to COVID. Pt is afebrile and on 2L of O2. ENT consult pending. Dr. Avelar, ENT to be consulted. MONIE discussed with pt's nurse. MONIE faxed clinical/therapy updated to [facility] post-acute liaison for review. Will need insurance authorization for skilled placement. MONIE is following to assist as needed with discharge planning.
[2020-05-20 16:20] VITALS: BP 126/59
--- NOTE | 2020-05-20 18:41 | NUR ---
ASSUMED PATIENT CARE AT 0700. A/O X3. VERY HARD HEA[place]. VSS UP TO CHAIR WITH PT. SLOWLY TOWARDS POC GOALS.
[2020-05-20 20:35] VITALS: BP 118/48
[2020-05-21 05:32] LABS: HEMATOCRIT 33.6 % (37.0-47.0); HEMOGLOBIN 10.8 gm/dL (12.0-15.0); MCH 28.9 pg (26.0-34.0); MCV 90.3 fL (80.0-100.0); RBC 3.72 mil/uL (4.20-5.00); RDW 16.1 % (10.5-14.5); WBC 12.3 thou/uL (4.0-11.0)
[2020-05-21 06:04] LABS: CALCIUM 8.2 mg/dL (8.5-10.1); CREATININE 1.1 mg/dL (0.6-1.0); MAGNESIUM 2.2 mg/dL (1.8-2.4)
[2020-05-21 06:07] LABS: POTASSIUM 4.2 mmol/L (3.5-5.1)
--- NOTE | 2020-05-21 07:28 | NUR ---
HELD PTS INSULIN FOR 2100 MED PASS DUE TO PT BECOMING HYPOGLACEMIC IN THE AM. 2100 BS WAS 228 AN AM BS WAS 68. VSS OVERNIGHT AND PT ON 1L 02.
[2020-05-21 07:47] VITALS: BP 113/53
--- NOTE | 2020-05-21 14:59 | NUR ---
MONIE reviewed chart and spoke with nursing and attending physician. Pt remains in Enhanced Isolation due to COVID. Pt is afebrile and down to 1L of O2. Pt febrile. WBC elevated. Pt not ready for discharge to [facility] today. life care planner faxed clinical/therapy updates to [facility] for review. MONIE updated [facility] post-acute liaison. Will need insurance authorization. Pt will need repeat COVID test prior to discharge. SW notified attending physician. MONIE spoke with pt's friend, Tabitha, to provide update and discuss discharge plan. Tabitha is agreeable with discharge plan. MONIE is following to assist as needed with discharge planning.
--- NOTE | 2020-05-21 15:48 | NUR ---
FAXED CLINICAL UPDATE TO [facility] RECEIVED CONFIRMATION AND SPOKE WITH VI ZHONG RECEIVED UPDATE.
[2020-05-21 16:14] VITALS: BP 114/65
[2020-05-21 20:30] VITALS: BP 116/57
[2020-05-22 03:36] VITALS: BP 137/71
[2020-05-22 05:25] LABS: HEMOGLOBIN 10.3 gm/dL (12.0-15.0); MCHC 32.3 g/dL (28.0-37.0); MCV 89.6 fL (80.0-100.0); PLATELET COUNT 96 thou/uL (150-400); RBC 3.57 mil/uL (4.20-5.00); RDW 15.8 % (10.5-14.5); WBC 13.1 thou/uL (4.0-11.0)
[2020-05-22 05:50] LABS: ALBUMIN 1.7 g/dL (3.4-5.0); CALCIUM 8.3 mg/dL (8.5-10.1); CREATININE 1.2 mg/dL (0.6-1.0); POTASSIUM 4.4 mmol/L (3.5-5.1); TOTAL BILIRUBIN 0.5 mg/dL (0.2-1.0); TOTAL PROTEIN 4.7 g/dL (6.4-8.2)
--- NOTE | 2020-05-22 07:23 | NUR ---
PT MAKING SLOW PROGRESS TOWARD GOALS. ON ROOM AIR THROUGHOUT THE NIGHT. DENIES SOA WHILE AT REST. LUNGS DIMINISHED THROUGHOUT.
[2020-05-22 07:44] LABS: ABSOLUTE NEUTROPHILS 9.3 thou/uL (1.4-8.2); MYELOCYTES 1 %
[2020-05-22 07:45] LABS: PLATELET ESTIMATE SLIGHTLY DECREASED
[2020-05-22 08:38] VITALS: BP 117/64
[2020-05-22 15:12] VITALS: BP 127/66
[2020-05-22 19:59] VITALS: BP 133/69
[2020-05-23 02:59] VITALS: BP 138/84
[2020-05-23 08:41] LABS: URINE BILIRUBIN NEGATIVE (Negative); URINE BLOOD NEGATIVE (Negative); URINE CLARITY CLEAR; URINE COLOR YELLOW; URINE GLUCOSE-RANDOM* TRACE (Negative); URINE KETONES NEGATIVE (Negative); URINE LEUKOCYTES-REFLEX NEGATIVE (Negative); URINE NITRITE-REFLEX NEGATIVE (Negative); URINE PROTEIN (DIPSTICK) NEGATIVE (Negative); URINE SPECIFIC GRAVITY 1.015 (1.005-1.035); URINE UROBILINOGEN 0.2 E.U./dl (0.2-1.0)
[2020-05-23 10:01] LABS: CALCIUM 8.2 mg/dL (8.5-10.1); CREATININE 1.1 mg/dL (0.6-1.0); MAGNESIUM 2.3 mg/dL (1.8-2.4); POTASSIUM 4.9 mmol/L (3.5-5.1)
[2020-05-23 11:07] LABS: HEMATOCRIT 32.2 % (37.0-47.0); HEMOGLOBIN 10.3 gm/dL (12.0-15.0); MCH 29.1 pg (26.0-34.0); MCV 90.9 fL (80.0-100.0); RBC 3.55 mil/uL (4.20-5.00); RDW 16.7 % (10.5-14.5); WBC 13.1 thou/uL (4.0-11.0)
[2020-05-23 16:44] VITALS: BP 125/68
--- NOTE | 2020-05-23 19:56 | NUR ---
ASSUMED PATIENT CARE AT 0700. A/O X3. IRRITABLE. VSS. AFEBRILE. SLOWLY TOWARDS POC GOALS.
[2020-05-24 04:45] VITALS: BP 126/63
--- NOTE | 2020-05-24 04:50 | NUR ---
PT LYING IN BED. L[facility]AB PROVIDING PAIN RELIEF. RESTING COMFORTABLY. NO NEEDS VOICED. CALL LIGHT WITHIN REACH. FREQUENT OBSERVATION.
[2020-05-24 08:00] VITALS: BP 130/65
--- NOTE | 2020-05-24 15:03 | NUR ---
FROM [facility] MONIE reviewed chart and spoke with nursing and attending physician. Pt is medically stable for discharge to [facility]. Awaiting insurance auth. MONIE updated [facility] post-acute liaison. process planner to fax clinical/therapy updates to the facility for review. MONIE is following to assist as needed with discharge planning. [facility]
[2020-05-24 15:38] VITALS: BP 140/79
[2020-05-24 20:56] VITALS: BP 138/71
--- NOTE | 2020-05-25 00:06 | NUR ---
PT ALERT AND ORIENTEDED. VSS AFEBRILE. SATS WNL ON RA. C/O LLE PAIN. MEDICATED WITH 2 TYLENOL. SHE IS PRESENTY SLEEPING QUIETLY. NO S/S DISTRESS. BED DOWN. CALL LIGHT IN REACH. NO S/S DISTRESS. IVFS INFUSING WITHOUT DIFFICULTY RIGHT ARM.
[2020-05-25 03:01] VITALS: BP 127/58
[2020-05-25 08:22] VITALS: BP 124/63
--- NOTE | 2020-05-25 10:10 | NUR ---
FAXED CLINICAL UPDATE TO [facility] SPOKE WITH RUSSEL IN ADM SHE RECEIVED UPDATE AND HAS AUTH.
--- NOTE | 2020-05-25 12:21 | NUR ---
MONIE reviewed chart and spoke with nursing and attending physician. Pt remains in Enhanced Isolation due to COVID. Pt is afebrile and off O2. Pt is on IV abx. MONIE discussed case with physical therapy. Pt is agreeable with post-acute placement and would prefer to go to [facility]. MONIE contacted [facility] liaison to see if they would consider pt, as she is 23 days post first positive COVID test. [facility] is willing to review pt's info. estate planner to faxe referral. MONIE is following to assist as needed with discharge planning.
--- NOTE | 2020-05-25 13:35 | NUR ---
FAXED REFERRAL TO [facility] RECEIVED CONFIRMATION AND LEFT MSG WITH RICARDO IN ADM AT FACILITY.
[2020-05-25] MEDS ORDERED: NYAMYC15 GM TOP (15:43)
[2020-05-25] MEDS ORDERED: PREDNISONE 10 M10 M1 PO (15:43)
[2020-05-25] MEDS ORDERED: NOVOLOG100 UNIT/1 SUBQ (15:43)
[2020-05-25] MEDS ORDERED: LIDOCAINE VISC100 ML PO (15:43)
[2020-05-25] MEDS ORDERED: LANTUS100 UNIT/M SUBQ (15:43)
[2020-05-25] MEDS ORDERED: VENTOLIN HFA INH8 GM INH (15:43)
[2020-05-25 17:02] VITALS: BP 124/63
--- NOTE | 2020-05-25 18:12 | NUR ---
PROGRESSING TOWRADS POC GOALS, DC TO SNF NOW.
== END 2020-05-25 18:13 | DRG 871 ==
LOC: ER 10:33 → 3W 12:50 → EROBS 12:50 → 3W 05-03 02:10
PROVIDERS: Emergency Medicine; Hospitalist; Internal Medicine; Internal Medicine Pulmonary Disease; Specialist; ADMIT Internal Medicine; ATTEND Internal Medicine
DX: A41.89 Other specified sepsis (principal); J96.01 Acute respiratory failure with hypoxia; U07.1 COVID-19; J12.82 Pneumonia due to coronavirus disease 2019; G93.40 Encephalopathy, unspecified; E46 Unspecified protein-calorie malnutrition; E78.00 Pure hypercholesterolemia, unspecified; I10 Essential (primary) hypertension; E11.42 Type 2 diabetes mellitus with diabetic polyneuropathy; Z96.612 Presence of left artificial shoulder joint; E11.51 Type 2 diabetes mellitus with diabetic peripheral angiopathy without gangrene; F09 Unspecified mental disorder due to known physiological condition; R79.89 Other specified abnormal findings of blood chemistry; F41.1 Generalized anxiety disorder; E66.9 Obesity, unspecified; Z98.42 Cataract extraction status, left eye; Z98.41 Cataract extraction status, right eye; Z90.49 Acquired absence of other specified parts of digestive tract; Z68.37 Body mass index [BMI] 37.0-37.9, adult; Z86.14 Personal history of Methicillin resistant Staphylococcus aureus infection; Z89.422 Acquired absence of other left toe(s); Z88.6 Allergy status to analgesic agent; Z89.512 Acquired absence of left leg below knee; Z79.899 Other long term (current) drug therapy
CPT/HCPCS: 10879

== ENCOUNTER → 2020-09-01 | Outpatient (CLI) | payer OTHER ==
[~2020-09-01] MED LIST changes: +LANTUS100 UNIT/M SUBQ; +LIDOCAINE VISC100 ML PO; +NOVOLOG100 UNIT/1 SUBQ; +NYAMYC15 GM TOP; +PREDNISONE 10 M10 M1 PO; +TRAZODONE HCL50 MG PO; +VENTOLIN HFA INH8 GM INH
== END ==
LOC: ULTRA 12:26
PROVIDERS: ATTEND Internal Medicine
DX: M79.604 Pain in right leg (principal); M79.89 Other specified soft tissue disorders

== ENCOUNTER → 2020-12-08 | Outpatient (CLI) | payer OTHER | LOC: CAT 15:52 | PROVIDERS: ATTEND Internal Medicine | DX: N26.1 Atrophy of kidney (terminal) (principal); I51.7 Cardiomegaly; I25.10 Atherosclerotic heart disease of native coronary artery without angina pectoris; M43.16 Spondylolisthesis, lumbar region; R10.9 Unspecified abdominal pain ==

== ENCOUNTER 2021-03-12 13:48 | Inpatient (IN) | payer OTHER ==
[~2021-03-12] VITALS: Ht 154.9 cm; Wt 77.2 kg
[2021-03-12 13:50] VITALS: BP 102/78
[2021-03-12 15:05] LABS: ABSOLUTE NEUTROPHILS 5.6 thou/uL (1.4-8.2); BASOPHILS 0.7 % (0.0-2.0); EOSINOPHILS 1.3 % (0.0-3.0); HEMATOCRIT 45.5 % (37.0-47.0); HEMOGLOBIN 15.4 gm/dL (12.0-15.0); LYMPHOCYTES 33.4 % (24.0-44.0); MCH 29.4 pg (26.0-34.0); MCHC 33.8 g/dL (28.0-37.0); MONOCYTES 7.2 % (1.0-8.0); PLATELET COUNT 156 thou/uL (150-400); POLYS 57.4 % (36.0-66.0); RBC 5.23 mil/uL (4.20-5.00); RDW 14.1 % (10.5-14.5); WBC 9.7 thou/uL (4.0-11.0)
[2021-03-12 15:23] LABS: CALCIUM 9.6 mg/dL (8.5-10.1); CREATININE 1.8 mg/dL (0.6-1.0)
[2021-03-12 17:38] LABS: URINE BILIRUBIN NEGATIVE (Negative); URINE BLOOD NEGATIVE (Negative); URINE CLARITY CLEAR; URINE COLOR YELLOW; URINE GLUCOSE-RANDOM* NEGATIVE (Negative); URINE KETONES NEGATIVE (Negative); URINE LEUKOCYTES-REFLEX TRACE (Negative); URINE NITRITE-REFLEX NEGATIVE (Negative); URINE PROTEIN (DIPSTICK) NEGATIVE (Negative)
[2021-03-12 20:37] LABS: CHOLESTEROL 152 mg/dL (<200); HDL CHOLESTEROL 42 mg/dL (>40); LDL CHOLESTEROL 69 mg/dL (<100); TC:HDL 3.6 Ratio (Not establshd); TRIGLYCERIDE 208 mg/dL (<150); VLDL 42 mg/dL (<40)
[2021-03-12 20:40] LABS: SERUM ASSESSMENT Clear
[2021-03-12 20:48] VITALS: BP 141/93
[2021-03-12 21:13] VITALS: BP 151/83
[2021-03-13 00:09] VITALS: BP 132/71
[2021-03-13] MEDS ORDERED: NORCO7.5 PO ×2 (00:26→00:27)
[2021-03-13 03:11] VITALS: BP 137/73
[2021-03-13 04:54] LABS: CALCIUM 9.3 mg/dL (8.5-10.1); CREATININE 1.6 mg/dL (0.6-1.0); POTASSIUM 3.3 mmol/L (3.5-5.1)
--- NOTE | 2021-03-13 05:09 | NUR ---
PATIENT ARRIVED ON UNIT AROUND 2214 WITH NEW ONSET AFIB. PATIENT VERY ANXIOUS, DEMANDING HER CARE BE EXACTLY THE SAME HER HOME CARE. WAS VERY UPSET WHEN SHE WAS TOLD THAT SHE COULD NOT KEEP HER HOME MEDS IN HER PURSE AT BEDSIDE. NORCO TABS AND OTHER HOME MED WAS SENT TO PHARMACY FOR HOLDING. PATIENT VERY POOR HISTORIAN. UNABLE TO ANSWER MANY QUESTIONS. PATIENT PARTICULAR IN HER SETUP FOR HER PROSTHESIS.
[2021-03-13 07:11] LABS: GLYCOHEMOGLOBIN (HGB A1C) 7.9 % (4.8-5.6)
[2021-03-13 07:53] VITALS: BP 144/74
--- NOTE | 2021-03-13 10:32 | EKG ---
[address] [address] ELECTROCARDIOGRAM REPORT Name: RAKAN PRAKASH Room #: 208-P ADM IN M.R.#: [id number] Admission: 03/12/21 Attend Phys: Lan Alvarado MD Discharge: Date of : 35 Report #: [id number] [facility] ED Test Date: 2021-03-12 Test Time: 13:56:08 Pat Name: RAKAN PRAKASH Department: Room: 208 Gender: F Mailroom Personnel: MALINDA : 1935 Requested By: Reji Santiago Order Number: [id number] MD: Nicolas Ag Measurements Intervals [place] Rate: 81 P: DC: QRS: -73 QRSD: 98 T: -2 QT: 372 QTc: 432 Interpretive Statements Atrial fibrillation Abnormal R-wave progression, late transition Inferior infarct, old Compared to ECG 03/26/2019 14:43:35 Sinus rhythm no longer present Left-axis deviation no longer present Electronically Signed On 03-13-2021 10:32:13 VEHICLE RETURN ASSOCIATE by Nicolas Ag [email or web address] <ELECTRONICALLY SIGNED> By: Nicolas Ag MD 03/13/21 1032 [id number] Nicolas Ag MD /SLY
[2021-03-13 11:11] VITALS: BP 149/82
[2021-03-13 13:19] LABS: HEMATOCRIT 46.2 % (37.0-47.0); HEMOGLOBIN 15.4 gm/dL (12.0-15.0); MCHC 33.3 g/dL (28.0-37.0); MCV 87.3 fL (80.0-100.0); RBC 5.3 mil/uL (4.20-5.00); RDW 13.9 % (10.5-14.5); WBC 11.9 thou/uL (4.0-11.0)
[2021-03-13 13:35] LABS: INR 1.06; PROTIME 11.5 Seconds (10.5-12.1)
[2021-03-13 15:42] VITALS: BP 153/92
[2021-03-13 20:46] VITALS: BP 165/72
--- NOTE | 2021-03-13 22:05 | NUR ---
pt stated in conversation that her caregiver was not present when she was describing her chest discomfort and her reasoning for coming to the hospital. individuals from her mandaen that check up on her in her home and were present to visit her today, stated to this rn that the pt is unable to cook, to clean, to care for herself in her home and that the caregiver is not present and unreliable. after discharge it is not safe for her to return home. she will be reluctant and stubborn about leaving her home. she needs assistance for post discharge care.
--- NOTE | 2021-03-14 01:14 | NUR ---
ASSESSMENTS CHARTED, PATIENT RESTING IN BED DURING SHIFT. PATIENT STILL VERY ANXIOUS AND HAS REPETITIVE SPEECH. PATIENT HAS HEPARIN DRIP AND NORMAL SALINE RUNNING DURING SHIFT. PATIENT REQUESTING PAIN MED AT START OF SHIFT FOR LEG CRAMPS AND PAIN. PATIENT IS ANXIOUS ABOUT TOMORROWS TESTS. SHE TRIES TO UNDERSTAND WHAT THEY ARE FOR, BUT BETWEEN HER HEARING DIFFICULTY AND HER ANXIOUSNESS SHE IS NOT HOLDING ON TO THE INFORMATION. PATIENT WAKING SEVERAL TIME DURING NIGHT ANXIOUS AND CONFUSSED, STATES SHE HAS NOT SLEPT AT ALL, YET WHEN I CHECK ON HER SHE IS ASLEEP. PLAN OF CARE IS FOR A NUCLEAR STRESS TEST IN AM AND ECHO IN AM.
[2021-03-14 03:11] VITALS: BP 157/90
[2021-03-14 06:27] LABS: ABSOLUTE NEUTROPHILS 8.3 thou/uL (1.4-8.2); BASOPHILS 0.5 % (0.0-2.0); EOSINOPHILS 0.3 % (0.0-3.0); HEMATOCRIT 49.9 % (37.0-47.0); HEMOGLOBIN 16.5 gm/dL (12.0-15.0); LYMPHOCYTES 24.6 % (24.0-44.0); MCHC 33.1 g/dL (28.0-37.0); MCV 87.7 fL (80.0-100.0); PLATELET COUNT 173 thou/uL (150-400); POLYS 69.6 % (36.0-66.0); RBC 5.69 mil/uL (4.20-5.00); RDW 13.8 % (10.5-14.5)
[2021-03-14 06:41] LABS: ALBUMIN 3.6 g/dL (3.4-5.0); CALCIUM 9.6 mg/dL (8.5-10.1); CREATININE 1.1 mg/dL (0.6-1.0); MAGNESIUM 1.5 mg/dL (1.8-2.4); POTASSIUM 4.1 mmol/L (3.5-5.1); TOTAL PROTEIN 7.9 g/dL (6.4-8.2)
[2021-03-14 07:53] VITALS: BP 159/77
--- NOTE | 2021-03-14 11:45 | 2DMMODE ---
[facility] [place] [address] 2 D/M-MODE ECHOCARDIOGRAM Name: RAKAN PRAKASH Room #: 208-P ADM IN M.R.#: [id number] Admission: 03/12/21 Attend Phys: Lan Alvarado MD Discharge: Date of : 35 Report #: [id number] THIS REPORT FOR: cc: Valentín Hernandez MD, Christopher B. MD Park, Jin S. MD ~ APPROVED REPORT Study performed: 03/14/2021 11:27:22 EXAM: Comprehensive 2D, Doppler, and color-flow Echocardiogram Patient Location: Bedside Room #: 208 Status: routine BSA: 1.84 HR: 104 bpm BP: 159/77 mmHg Rhythm: Atrial Fibrillation Other Information Study Quality: Adequate Risk Factors: Cardiac Risk Factors: DM Indications Diabetes Chest Pain Hypertension/HDD 2D Dimensions IVSd: 15.57 (7-11mm) LVOT Diam: 18.48 (18-24mm) LVDd: 31.42 mm PWd: 14.79 (7-11mm) Ascending Ao: 32.33 (22-36mm) LVDs: 23.46 (25-40mm) Left Atrium: 39.14 (27-40mm) Aortic Root: 25.64 mm Volumes Left Atrial Volume (Systole) Single Plane 4CH: 37.08 mL Single Plane 2CH: 52.24 mL Biplane LA Volume: 50.00 mL LA ESV Index: 27.00 mL/m2 Aortic Valve [facility] [address] [place] [address] 2 D/M-MODE ECHOCARDIOGRAM Name: RAKAN PRAKASH CARYN Room #: 208-P [facility] IN .R.#: [id number] Admission: 03/12/21 Attend Phys: Lan Alvarado, Discharge: Date of : 35 Report #: [id number] AoV Peak Satya.: 1.15 m/s AO Peak Gr.: 6.14 mmHg LVOT Max P.57 mmHg LVOT Max V: 0.80 m/s MARCIO Vmax: 1.87 cm2 Pulmonary Valve PV Peak Satya.: 0.69 m/s PV Peak Gr.: 1.90 mmHg Tricuspid Valve TR Peak Satya.: 2.23 m/s RAP Estimate: 7.00 mmHg TR Peak Gr.: 19.97 mmHg RVSP: 27.00 mmHg Left Ventricle The left ventricle is normal size. There is normal LV segmental wall motion. Mild concentric left ventricular hypertrophy. Left ventricular systolic function is normal. The left ventricular ejection fraction is within the normal range. LVEF is 55-60%. This study is not technically sufficient to allow evaluation of the LV diastolic function. Right Ventricle The right ventricle is normal size. The right ventricular systolic function is normal. Atria Left atrium is dilated. Right atrium is dilated. Aortic Valve Aortic valve is trileaflet. No aortic regurgitation is present. There is no aortic valvular stenosis. Mitral Valve Mitral valve leaflets are mildly thickened. There is mitral annular calcification. Mild mitral regurgitation. No evidence of mitral valve stenosis. Tricuspid Valve The tricuspid valve is normal in structure. Mild tricuspid regurgitation. PAP 25 mmHg. Pulmonic Valve The pulmonary valve is normal in structure. There is no pulmonic valvular regurgitation. Great Vessels The aortic root is normal in size. IVC is normal in size and [facility] [address] [place] [address] 2 D/M-MODE ECHOCARDIOGRAM Name: RAKAN PRAKASH Room #: 208-P [facility] IN ..#: [id number] Admission: 03/12/21 Attend Phys: Lan Alvarado, Discharge: Date of : 35 Report #: [id number] collapses >50% with inspiration. Pericardium There is no pericardial effusion. There is no pleural effusion. <Conclusion> The left ventricle is normal size. Mild concentric left ventricular hypertrophy. Left ventricular systolic function is normal. The right ventricle is normal size. Left atrium is dilated. Aortic valve is trileaflet. There is mitral annular calcification. Mild mitral regurgitation. Mild tricuspid regurgitation. <ELECTRONICALLY SIGNED> By: Nicolas Ag MD 03/14/21 1145 1145 1145 Nicolas Ag MD /SHELLEY
[2021-03-14 15:27] VITALS: BP 134/83
--- NOTE | 2021-03-14 15:30 | NUR ---
Case opened to follow for dc planning. Volunteer Assistant visited with the pt at bedside. She is a&ox4, ENTERPRISE and anxious. She lives alone with her cat in a condo with a ramp. She has a hx of lt bka and uses a prothesis, w/c and FWW for gait. She has a caregiver 5hrs a day per the HBCS program with medicaid. Her cg was in the hospital but is now out and will be able to resume care at [facility]. She is open to HH RN, PT/OT/[facility] referral at [facility]. She used [facility] years ago and would like to use [facility] now if they will accept. Referral faxed and called. She is familiar with sn[facility] and has been to [facility] and [facility] but does not feel she needs that currently. She prefers to go directly home with hh and her caregiver. Dayana is still her dpoa for hc if needed. Message left for her as well. Pt's dtr Aria is an alternate contact but is very anxious and does not want calls from the hospital due to a heart attack. The pt did ask for typewriter operator automatic to call her brother Owen Wagner [phone] to let him know she is in the hospital. She has not talked with him from some years. PT/OT are working with the pt. She is hoping to dc home tomorrow and will update her caregiver and dpoa this evening. DC plan is HH services at [facility] to include a [facility] to assist with limited support system and increasing care needs in the home. Will follow.
[2021-03-14 21:00] VITALS: BP 125/64
[2021-03-15 04:54] VITALS: BP 116/60
--- NOTE | 2021-03-15 07:51 | NUR ---
ASSESSMENTS CHARTED, MEDS CHARTED GIVEN. PATIENT RESTING IN BED DURING SHIFT. CALM, READING A BOOK. ON HEPARIN DRIP. STILL TRYING TO GET HER IN THERAPUTIC RANGE. WORKING WITH PT/OT. FALL PRECAUTIONS IN PLACE DURING SHIFT.
[2021-03-15 08:00] VITALS: BP 97/56
--- NOTE | 2021-03-15 10:33 | NUR ---
Nutrition: pt admitted with new onset afib, cardiology working up. Seen due to unstageable right heel wound with eschar. Usual appetite is good but has been down for a few days due to pain per pt. Was here in May with COVID and ate well. UBW around 180#. Variable bedscale weights: 189# and 168#. Pt unaware of weight loss. On mechanical soft diet due to chewing difficulty. RD obtained food preferences and assisted with meal orders. Drinks boost BID at home, will add ensure BID and follow for improvement in appetite. Low risk with interventions in place.
[2021-03-15 11:32] VITALS: BP 109/51
--- NOTE | 2021-03-15 15:25 | NUR ---
Patient adament to [place] she will not go to [facility]. Spoke with ROLY reported plan for home health care that patient not agreeable to skilled. ROLY in agreement. She reports with home based community either they cant staff or she fires staff. [place]. She has called her elevator service mechanic who is out of hospital but will not answer phone and her mailbox if full. This casemgr also left a message. Patient has prosethsis and walker in room. [facility] of patient [place].
[2021-03-15 16:10] VITALS: BP 96/64
--- NOTE | 2021-03-15 18:09 | NUR ---
PATIENT WENT FOR A CARDIAC TEST THIS AM. CARDIOLGY REPORT NOT IN AT TIME OF THIS NOTE. PT WAS TAKING OFF OF HEPARIN THIS AM AND PLACED ON LOVENOX, PT WAS THEN TAKING OF LOVENOX AND PLACED ON ELEQUIS STARTING THIS EVENING. PT USED THE BEDSIDE COMMODE WITH ASSISTANCE. NO BM TODAY.
[2021-03-15 19:49] VITALS: BP 110/62
--- NOTE | 2021-03-16 02:04 | NUR ---
ASSESSMENT CHARTED, PATIENT ALREADY IN BED ASLEEP FOR THE NIGHT AT START OF SHIFT. WOKE FOR ASSESSMENT AND EVENING MEDS. PATIENT EXCITED TO BE GOING HOME IN THE AM. GAVE REPORT TO DESIREE AT 0100.
[2021-03-16 04:35] VITALS: BP 141/71
[2021-03-16 05:51] LABS: HEMATOCRIT 42.8 % (37.0-47.0); HEMOGLOBIN 14.7 gm/dL (12.0-15.0); MCHC 34.3 g/dL (28.0-37.0); MCV 87.5 fL (80.0-100.0); RBC 4.89 mil/uL (4.20-5.00); RDW 14.1 % (10.5-14.5); WBC 7.5 thou/uL (4.0-11.0)
[2021-03-16 06:00] LABS: CALCIUM 8.5 mg/dL (8.5-10.1); CREATININE 1.7 mg/dL (0.6-1.0); POTASSIUM 4.8 mmol/L (3.5-5.1)
[2021-03-16 07:35] VITALS: BP 106/62
--- NOTE | 2021-03-16 08:36 | HC ---
[facility] [place] [address] CONSULTATION Name: RAKAN PRAKASH Room #: 208-P ADM IN M.R.#: [id number] Admission: 03/12/21 Attend Phys: Lan Alvarado MD Discharge: Date of : 35 Report #: [id number] THIS REPORT FOR: cc: Valentín Hernandez MD, Christopher B. MD Althoff,Camilo Andujar MD ~ DATE OF SERVICE: 03/14/2021 WOUND CARE CONSULTATION CHIEF COMPLAINT: Right heel ulcer. HISTORY OF PRESENT ILLNESS: This is an 85-year-old female patient who was admitted through the Emergency Department with chest pain for 2 days prior to admission. She has a history of peripheral arterial disease, prior left below-knee amputation, diabetes, hypertension, hyperlipidemia, prior history of osteomyelitis of the left foot, status post below-knee amputation. FAMILY HISTORY: Noncontributory. PAST MEDICAL HISTORY: Positive for previous cholecystectomy, appendectomy, type 2 diabetes mellitus, hypertension, hyperlipidemia, peripheral neuropathy, left below-knee [place] [address] Cates. SOCIAL HISTORY: The patient is a prior smoker, currently does not smoke. No alcohol use. FAMILY HISTORY: Noncontributory. MEDICATIONS: Includes albuterol, amlodipine, docusate sodium, gabapentin, glimepiride, hydrocodone, insulin, lidocaine, nystatin, prednisone, senna, trazodone. ALLERGIES: OXYCODONE. REVIEW OF SYSTEMS: CONSTITUTIONAL: The patient denies fever, chills, weight loss. NEUROLOGICAL: The patient denies focal weakness, numbness, or tingling. EYES: The patient denies visual changes, redness or drainage. ENT: The patient denies earache, nasal drainage or sore throat. CARDIOVASCULAR: The patient denies chest pain, palpitations, diaphoresis currently, but did have chest pain on admission. GASTROINTESTINAL: Denies nausea, vomiting, diarrhea or abdominal pain. ORTHOPEDIC: The patient denies pain, but is aware of the ulceration involving her right heel area. Others systems in a 14-point review of systems are negative. [facility] [address] [place] [address] CONSULTATION Name: RAKAN PRAKASH Room #: 208-P [facility] IN .R.#: [id number] Admission: 03/12/21 Attend Phys: Lan Alvarado MD Discharge: Date of : 35 Report #: [id number] PHYSICAL EXAMINATION: VITAL SIGNS: Include respirations of 17, blood pressure 102/78, temperature 36.6, pulse 85. GENERAL: This is a chronically ill-appearing female patient who appears to be in minimal distress. HEENT: Head normocephalic. Nose and throat are clear. NECK: Supple. LUNGS: Clear. ABDOMEN: Soft. HEART: Irregular without murmur. ABDOMEN: Soft and nontender. EXTREMITIES: Demonstrate left below-knee amputation, site is not evaluated. Apparently, it has previously healed. She is wearing her prosthesis currently. Right foot demonstrates skin is pink, warm, and dry with good capillary refill. Distal pulses are diminished yet palpable. She has a small ulceration on the posteromedial aspect of the left heel. It has a very superficial dry stable eschar. It is not infected and it is not or tender. NEUROLOGIC: The patient is alert and appropriate. LABORATORY STUDIES: Include white blood cell count 12,000 with a hemoglobin of 16.5, hematocrit of 42.9. Sodium 135, potassium 4.1, chloride 101, CO2 of 19, BUN 14, creatinine 1.1. Glucose is 219, total protein 7.9, albumin is 3.6. CLINICAL IMPRESSION: 1. Unstageable pressure ulceration to the right heel. 2. Peripheral arterial disease. 3. Type 2 diabetes mellitus. 4. History of prior left below-knee amputation. 5. Hypertension. 6. Hyperlipidemia. RECOMMENDATIONS: At this point, we will leave the left heel open to air, "Betadine paint" daily, Prevalon boot or floating the heel for pressure prophylaxis. I suspect that the eschar will peel-off in time, no indication for debridement. No antibiotic required at this time. I appreciate being asked to see her in consultation. <ELECTRONICALLY SIGNED> By: Camilo Chamberlain MD 03/16/21 0836 [id number] Camilo Chamberlain MD /nt
[2021-03-16] MEDS ORDERED: ATENOLOL 50MG T50 MG PO (09:10)
[2021-03-16] MEDS ORDERED: ELIQUIS5 MG PO (09:10)
[2021-03-16] MEDS ORDERED: ELIQUIS2.5 MG PO (09:16)
[2021-03-16 11:26] VITALS: BP 112/61
[2021-03-16] MEDS ORDERED: NEURONTIN 300M300 M2 PO (11:28)
[2021-03-16] MEDS ORDERED: MAGOX 400400 MG PO (11:28)
[2021-03-16] MEDS ORDERED: PROTONIX40 M2 PO (11:28)
[2021-03-16 13:08] VITALS: BP 112/61
--- NOTE | 2021-03-16 14:07 | NUR ---
EXPLAINED DISCHARGE INSTRUCTIONS TO PATIENT. HIGHLIGHTED UPCOMING APPOINTMENTS, EXPLAINED AND HIGHLIGHTED ALL NEW MEDICATIONS. PLACED HOME HEALTH PHONE NUMBER ON THE FRONT OF THE DISCHARGE PAPERWORK AND HIGHLIGHTED IT. PT STATED SHE UNDERSTOOD THE INSTRUCTIONS AND READ BACK THE PHONE NUMBER FOR HOME HEALTH. ASSISSTED PATIENT GETTING ALL HER BELONGINGS TOGETHER AND RETRIVED HOME MEDICATIONS THAT WERE BEING HELD IN THE PHARMACY. THOSE MEDS WERE PLACED IN THE BLACK BAG AND SENT HOME WITH PATIENT.
--- NOTE | 2021-03-16 17:18 | NUR ---
Spoke with patient regarding dc planning. Encouraged her to consider acute rehab at [facility] prior to dc home. Patient adament to return home. [facility] accepting. [facility] A met with patient. Phys encouraged acute rehab eval but patient cont to want to dc home. Patient dc home with care today. [facility] obtained orders. Patient reports she plans to call her friend to come over. She needs transport home but has her coyne and all belongings. She will call 911 if not doing well. Left message with friend of dc home.
[2021-03-17] MEDS ORDERED: ATENOLOL 50MG T50 M1 PO (18:42)
== END 2021-03-16 14:32 | disposition home health service (06) | DRG 308 ==
LOC: ER 13:48 → 2N 17:51 → EROBS 17:51 → 2N 20:48
PROVIDERS: Internal Medicine; Internal Medicine Cardiovascular Disease; Nurse Practitioner; Nurse Practitioner Family; ADMIT Internal Medicine; ATTEND Internal Medicine
DX: I48.91 Unspecified atrial fibrillation (principal); N17.0 Acute kidney failure with tubular necrosis; E87.1 Hypo-osmolality and hyponatremia; L89.610 Pressure ulcer of right heel, unstageable; Z20.822 Contact with and (suspected) exposure to COVID-19; E78.5 Hyperlipidemia, unspecified; F41.9 Anxiety disorder, unspecified; Z96.611 Presence of right artificial shoulder joint; E11.42 Type 2 diabetes mellitus with diabetic polyneuropathy; E11.51 Type 2 diabetes mellitus with diabetic peripheral angiopathy without gangrene; G89.4 Chronic pain syndrome; Z60.2 Problems related to living alone; R14.0 Abdominal distension (gaseous); I12.9 Hypertensive chronic kidney disease with stage 1 through stage 4 chronic kidney disease, or unspecified chronic kidney disease; E11.22 Type 2 diabetes mellitus with diabetic chronic kidney disease; R53.81 Other malaise; K59.00 Constipation, unspecified; K59.09 Other constipation; E83.42 Hypomagnesemia; N18.2 Chronic kidney disease, stage 2 (mild); Z90.49 Acquired absence of other specified parts of digestive tract; Z89.422 Acquired absence of other left toe(s); Z86.14 Personal history of Methicillin resistant Staphylococcus aureus infection; Z86.16 Personal history of COVID-19; Z98.42 Cataract extraction status, left eye; Z79.899 Other long term (current) drug therapy; Z98.41 Cataract extraction status, right eye; Z88.6 Allergy status to analgesic agent; Z28.21 Immunization not carried out because of patient refusal
CPT/HCPCS: 10081

== ENCOUNTER 2021-03-17 08:50 | Emergency (ER) | payer OTHER ==
[~2021-03-17] VITALS: Ht 157.5 cm; Wt 90.7 kg
[~2021-03-17 08:50] MED LIST changes: +ATENOLOL 50MG T50 MG PO; +ELIQUIS2.5 MG PO; +ELIQUIS5 MG PO; +MAGOX 400400 MG PO; +NEURONTIN 300M300 M2 PO; +NORCO7.5 PO; +PROTONIX40 M2 PO
--- NOTE | 2021-03-17 17:27 | NUR ---
Patient dc last evening home with care. She came to ER to be readmitted and plan for acute rehab. Met with patient. Reviewed yesterday option of acute rehab and patient declined reported she wanted to dc home. Discussed will review if candidate for acute rehab. Requested if can have [facility] liason meet with patient. She was reluctantly agreeable. Sp with rehab who reports at time they met with patient patient has already chosen [facility]. Report without diagnosis likely will not rec auth for acute rehab. Faxed clinical to [facility]. Al completed onsife eval and accepting. They have submitted for auth. Confirmed with patient she is agreeable to tranfer to [facility] once stable. She is agreeable and reports her PCP Dr Hernandez is at [facility]. Reviewed process of dc. Sp with her RN. Updated phys.
[2021-03-17] MEDS ORDERED: ATENOLOL 50MG T50 M1 PO (18:42)
[2021-03-18 15:21] VITALS: BP 00/00
--- NOTE | 2021-03-18 17:11 | NUR ---
[facility] rec auth. van for 1400. faxed orders, chart copied. Rn has number for report. Patient aware and in agreement with dc plan. no further needs
== END 2021-03-18 15:24 ==
LOC: ER 08:50
DX: F03.90 Unspecified dementia, unspecified severity, without behavioral disturbance, psychotic disturbance, mood disturbance, and anxiety (principal); Z20.822 Contact with and (suspected) exposure to COVID-19; E11.9 Type 2 diabetes mellitus without complications; I10 Essential (primary) hypertension; E78.5 Hyperlipidemia, unspecified; I48.91 Unspecified atrial fibrillation; R53.83 Other fatigue; F41.9 Anxiety disorder, unspecified; Z88.5 Allergy status to narcotic agent; Z79.899 Other long term (current) drug therapy; Z90.49 Acquired absence of other specified parts of digestive tract; Z98.890 Other specified postprocedural states

== ENCOUNTER → 2021-03-23 | Outpatient (CLI) | payer OTHER ==
[~2021-03-23] MED LIST changes: +ATENOLOL 50MG T50 M1 PO
== END ==
LOC: SJCVC 13:36
PROVIDERS: ATTEND Internal Medicine Cardiovascular Disease
DX: R94.31 Abnormal electrocardiogram [ECG] [EKG] (principal); I12.9 Hypertensive chronic kidney disease with stage 1 through stage 4 chronic kidney disease, or unspecified chronic kidney disease; E11.22 Type 2 diabetes mellitus with diabetic chronic kidney disease; N18.9 Chronic kidney disease, unspecified; I48.91 Unspecified atrial fibrillation; E78.00 Pure hypercholesterolemia, unspecified; R60.9 Edema, unspecified; E78.5 Hyperlipidemia, unspecified; Z88.8 Allergy status to other drugs, medicaments and biological substances; Z79.4 Long term (current) use of insulin; Z79.899 Other long term (current) drug therapy

== ENCOUNTER → 2021-04-12 | Outpatient (CLI) | payer OTHER | LOC: HYPER 13:48 | PROVIDERS: ATTEND Emergency Medicine | DX: E11.621 Type 2 diabetes mellitus with foot ulcer (principal); L89.620 Pressure ulcer of left heel, unstageable; L97.422 Non-pressure chronic ulcer of left heel and midfoot with fat layer exposed; L89.613 Pressure ulcer of right heel, stage 3; L97.411 Non-pressure chronic ulcer of right heel and midfoot limited to breakdown of skin; E11.69 Type 2 diabetes mellitus with other specified complication; M86.172 Other acute osteomyelitis, left ankle and foot; M17.12 Unilateral primary osteoarthritis, left knee; E11.51 Type 2 diabetes mellitus with diabetic peripheral angiopathy without gangrene; E11.42 Type 2 diabetes mellitus with diabetic polyneuropathy; I48.91 Unspecified atrial fibrillation; F03.91 Unspecified dementia, unspecified severity, with behavioral disturbance; F41.9 Anxiety disorder, unspecified; Z86.14 Personal history of Methicillin resistant Staphylococcus aureus infection; Z86.16 Personal history of COVID-19; Z98.890 Other specified postprocedural states; Z79.4 Long term (current) use of insulin; Z79.899 Other long term (current) drug therapy; Z87.891 Personal history of nicotine dependence; Z89.512 Acquired absence of left leg below knee ==

== ENCOUNTER → 2021-04-28 | Outpatient (CLI) | payer OTHER | LOC: HYPER 13:44 | PROVIDERS: ATTEND Emergency Medicine | DX: E11.621 Type 2 diabetes mellitus with foot ulcer (principal); L89.620 Pressure ulcer of left heel, unstageable; L97.422 Non-pressure chronic ulcer of left heel and midfoot with fat layer exposed; L89.613 Pressure ulcer of right heel, stage 3; L97.411 Non-pressure chronic ulcer of right heel and midfoot limited to breakdown of skin; E11.69 Type 2 diabetes mellitus with other specified complication; M86.172 Other acute osteomyelitis, left ankle and foot; M17.12 Unilateral primary osteoarthritis, left knee; E11.51 Type 2 diabetes mellitus with diabetic peripheral angiopathy without gangrene; E11.42 Type 2 diabetes mellitus with diabetic polyneuropathy; H91.90 Unspecified hearing loss, unspecified ear; E66.9 Obesity, unspecified; I48.91 Unspecified atrial fibrillation; F02.81 Dementia in other diseases classified elsewhere, unspecified severity, with behavioral disturbance; F41.9 Anxiety disorder, unspecified; Z86.14 Personal history of Methicillin resistant Staphylococcus aureus infection; Z86.16 Personal history of COVID-19; Z79.4 Long term (current) use of insulin; Z87.891 Personal history of nicotine dependence; Z89.512 Acquired absence of left leg below knee; Z68.31 Body mass index [BMI] 31.0-31.9, adult ==

== ENCOUNTER → 2021-05-12 | Outpatient (CLI) | payer OTHER | LOC: HYPER 11:00 | PROVIDERS: ATTEND Emergency Medicine | DX: E11.621 Type 2 diabetes mellitus with foot ulcer (principal); L89.620 Pressure ulcer of left heel, unstageable; L97.422 Non-pressure chronic ulcer of left heel and midfoot with fat layer exposed; L89.613 Pressure ulcer of right heel, stage 3; L97.411 Non-pressure chronic ulcer of right heel and midfoot limited to breakdown of skin; E11.69 Type 2 diabetes mellitus with other specified complication; M86.172 Other acute osteomyelitis, left ankle and foot; M17.12 Unilateral primary osteoarthritis, left knee; E11.51 Type 2 diabetes mellitus with diabetic peripheral angiopathy without gangrene; E11.42 Type 2 diabetes mellitus with diabetic polyneuropathy; H91.90 Unspecified hearing loss, unspecified ear; E66.9 Obesity, unspecified; I48.21 Permanent atrial fibrillation; F02.81 Dementia in other diseases classified elsewhere, unspecified severity, with behavioral disturbance; F41.9 Anxiety disorder, unspecified; Z86.14 Personal history of Methicillin resistant Staphylococcus aureus infection; Z86.16 Personal history of COVID-19; Z79.4 Long term (current) use of insulin; Z87.891 Personal history of nicotine dependence; Z89.512 Acquired absence of left leg below knee; Z68.31 Body mass index [BMI] 31.0-31.9, adult ==

== ENCOUNTER → 2021-05-24 | Outpatient (CLI) | payer OTHER | LOC: HYPER 08:32 | PROVIDERS: ATTEND Emergency Medicine | DX: E11.621 Type 2 diabetes mellitus with foot ulcer (principal); L89.613 Pressure ulcer of right heel, stage 3; L97.412 Non-pressure chronic ulcer of right heel and midfoot with fat layer exposed; E11.51 Type 2 diabetes mellitus with diabetic peripheral angiopathy without gangrene; E11.42 Type 2 diabetes mellitus with diabetic polyneuropathy; E11.69 Type 2 diabetes mellitus with other specified complication; M86.172 Other acute osteomyelitis, left ankle and foot; H91.90 Unspecified hearing loss, unspecified ear; M17.12 Unilateral primary osteoarthritis, left knee; I48.91 Unspecified atrial fibrillation; E66.9 Obesity, unspecified; F41.9 Anxiety disorder, unspecified; F02.81 Dementia in other diseases classified elsewhere, unspecified severity, with behavioral disturbance; Z68.31 Body mass index [BMI] 31.0-31.9, adult; Z86.14 Personal history of Methicillin resistant Staphylococcus aureus infection; Z86.16 Personal history of COVID-19; Z87.891 Personal history of nicotine dependence; Z79.4 Long term (current) use of insulin; Z79.899 Other long term (current) drug therapy; Z89.512 Acquired absence of left leg below knee ==

== ENCOUNTER → 2021-06-07 | Outpatient (CLI) | payer OTHER | LOC: HYPER 11:29 | PROVIDERS: ATTEND Emergency Medicine | DX: E11.621 Type 2 diabetes mellitus with foot ulcer (principal); L89.613 Pressure ulcer of right heel, stage 3; L97.411 Non-pressure chronic ulcer of right heel and midfoot limited to breakdown of skin; E11.51 Type 2 diabetes mellitus with diabetic peripheral angiopathy without gangrene; E11.69 Type 2 diabetes mellitus with other specified complication; M86.172 Other acute osteomyelitis, left ankle and foot; M17.12 Unilateral primary osteoarthritis, left knee; E11.42 Type 2 diabetes mellitus with diabetic polyneuropathy; I48.91 Unspecified atrial fibrillation; F02.81 Dementia in other diseases classified elsewhere, unspecified severity, with behavioral disturbance; F41.9 Anxiety disorder, unspecified; Z86.14 Personal history of Methicillin resistant Staphylococcus aureus infection; Z86.16 Personal history of COVID-19; Z87.891 Personal history of nicotine dependence; Z79.4 Long term (current) use of insulin; Z79.899 Other long term (current) drug therapy; Z89.512 Acquired absence of left leg below knee ==